=== PATIENT | male | born 1975 | race Caucasian/White ===

== ENCOUNTER 2017-02-23 10:13 | Emergency (ER) | payer OTHER ==
[2017-02-23] MEDS ORDERED: HYDROcodone/ACETAMIN 5-325 MG* 1 TAB PO ONE (12:48)
--- NOTE | 2017-02-23 12:55 | UC ---
Upper Extremity HPI - HPI Summary HPI Summary: lost his balance yesterday and pitched forward, falling into his smoker and thin falling against the stairs. Swelling and pain in the right elbow since then. No relief of pain with ibuprofen 1000mg - History of Current Complaint Chief Complaint: UCUpperExtremity Stated Complaint: S/P FALL RIGHT ELBOW INJURY Time Seen by Provider: 02/23/17 12:40 Hx Obtained From: Patient, Family/Pay Per Click Strategist - here with his . Onset/Duration: Sudden Onset, Lasting Days - 1 Severity Initially: Moderate Severity Currently: Moderate Pain Intensity: 8 Pain Scale Used: 0-10 Numeric Location Of Pain: Is Discrete @ - right elbow and right shoulder Character: Throbbing Aggravating Factor(s): Movement, Extension Alleviating Factor(s): OTC Meds, Other: - LI wrap Associated Signs And Symptoms: Positive: Negative Related History: Dominant Hand Right - Allergies/Home Medications Allergies/Adverse Reactions: Allergies Allergy/AdvReac Type Severity Reaction Status Date / Time Formaldehyde Allergy Swelling Verified 02/23/17 10:35 Home Medications: Home Medications Ibuprofen TAB* [Advil TAB*] 1,000 mg PO ONCE PRN 02/23/17 [History Confirmed ] Insulin Glargine (Nf) [Toujeo Solostar Pen (NF)] 90 unit SUBCUT BID 02/23/17 [ History Confirmed 02/23/17] PMH/Surg Hx/FS Hx/Imm Hx - Additional Past Medical History Additional PMH: morbid obesity Endocrine History: Diabetes Neurological History: Seizures - Surgical History Surgical History: Yes Surgery Procedure, Year, and Place: GALLBLADDER,ARTHROSCOPIC R KNEE SURGERY,T11- 12 LAMINECTOMY 12/01/11, - Family History Known Family History: Positive: Hypertension, Diabetes - Social History Occupation: Disabled - due to seizures Alcohol Use: Rare Substance Use Type: None Smoking Status (MU): Former Smoker Review of Systems Constitutional: Fatigue - could not sleep due to pain Skin: Negative Eyes: Negative ENT: Negative Respiratory: Negative Cardiovascular: Negative Gastrointestinal: Negative Genitourinary: Negative Motor: Negative Neurovascular: Negative Musculoskeletal: Arthralgia, Other: - swelling and decreased range of motion Neurological: Other - hx of seizures. Psychological: Negative All Other Systems Reviewed And Are Negative: Yes Physical Exam Triage Information Reviewed: Yes Appearance: Pain Distress - moderate, Obese Vital Signs: Initial Vital Signs Temp 98.3 F 02/23/17 10:37 Pulse 81 02/23/17 10:37 Resp 16 02/23/17 10:37 BP 132/76 02/23/17 10:37 Pulse Ox 98 02/23/17 10:37 Eye Exam: Normal Neck: Positive: Supple, Nontender Respiratory: Positive: Lungs clear Cardiovascular: Positive: RRR, No Murmur Musculoskeletal: Positive: ROM Limited @ - right elbow, unable to extend at the elbow., Other: - swelling and ecchymosis right elbow, decreased extension. Rotation with mild pain. Wrist with full rom. right shoulder with abuction to 90 degrees. Clavicle intack. Neurological: Positive: Alert, Muscle Tone Normal Psychological Exam: Normal Skin Exam: Normal Diagnostics - Laboratory Diagnostic Studies Completed/Ordered: xray shows effusion, no evidence of fracture. ? radial head fracture Re-Evaluation - Re-Evaluation First Eval Re-Evaluation Time: 13:30 Change: Improved Upper Extremity Course/Dx - Course Course Of Treatment: sling due to possible radial head fracture. follow up with orthopedics. hydrocodone for control of pain - Differential Dx/Diagnosis Differential Diagnosis/HQI/PQRI: Fracture (Closed), Strain, Sprain Provider Diagnoses: right elbow effusion, possible right radial head fracture. contusion right elbow Discharge - Discharge Plan Condition: Stable Disposition: HOME Prescriptions: HYDROcodone/ACETAMIN 5-325 MG* [Jal 5-325 TAB*] 2 tab PO Q6H PRN #30 tab MDD 8 PRN Reason: Pain Patient Education Materials: Elbow Fracture (ED) Referrals: Sudhir Nunez PA [Primary Care Provider] - Sekou Parker MD [Medical Doctor] - Additional Instructions: Although no definite fracture is seen, it is possible that the radial head has a break in it. Please follow up with orthopedics in 5 to 7 days for re-evaluation. Wear the sling throughout the day, and ensure that you ice the elbow for 10 minutes at least 4 times per day.
[2017-02-23 12:59] VITALS: BP 128/83
--- NOTE | 2017-02-23 13:36 | RAD ---
INDICATION: Right elbow injury. TECHNIQUE: 4 views of the right elbow were obtained. FINDINGS: There is soft tissue swelling along the lateral posterior aspect of the elbow. The bones are in normal alignment. There is a joint effusion present seen with both anterior posterior fat pad signs. No discrete fracture is seen. Joint spaces appear maintained. The results of this exam were discussed with the referring clinician. IMPRESSION: JOINT EFFUSION, NO FRACTURE IS SEEN. THE POSSIBILITY OF A NONDISPLACED FRACTURE CANNOT BE EXCLUDED. RECOMMEND A FOLLOW-UP X-RAY OF THE ELBOW IN 7-10 DAYS FOR FURTHER EVALUATION.
--- NOTE | 2017-02-23 16:15 | UC ---
Progress - Progress Note Progress Note: Ravindra cuevasent-see nurses note Re-Evaluation - Re-Evaluation First Eval Re-Evaluation Time: 13:30 Change: Improved
== END 2017-02-23 13:59 | disposition home or self-care (01) ==
LOC: UCCORT 10:13
DX: M25.421 Effusion, right elbow (principal); S50.01XA Contusion of right elbow, initial encounter; W18.09XA Striking against other object with subsequent fall, initial encounter; Y93.9 Activity, unspecified; Y92.9 Unspecified place or not applicable; E11.9 Type 2 diabetes mellitus without complications; Z79.4 Long term (current) use of insulin; E66.01 Morbid (severe) obesity due to excess calories; R56.9 Unspecified convulsions; Z90.49 Acquired absence of other specified parts of digestive tract; Z87.891 Personal history of nicotine dependence
CPT/HCPCS: 99213; G0463

== ENCOUNTER 2017-04-14 13:00 | Inpatient (IN) | payer OTHER ==
[2017-04-14] MEDS ORDERED: Ibuprofen TAB* 600 MG PO PRN (18:53)
[2017-04-14] MEDS ORDERED: diPHENhydraMINE PO* 25 MG PO PRN (18:53)
[2017-04-14] MEDS ORDERED: LORazepam INJ* 2 MG/ML 1 ML VIAL IV PRN (18:53)
[2017-04-14] MEDS ORDERED: Loperamide CAP* 2 MG PO PRN (18:57)
--- NOTE | 2017-04-14 19:03 | ADMNOTE ---
Admission Note HPI - HPI Handedness: DOS 04/14/17 right handed History of Present Illness: Dillan Marlow is a 41 year old right-handed man with a history of diabetes who reports the onset of spells in November 2015. He was alone when interviewed and much of what he reports about these spells is based on what his has told him. He indicates that he does not typically have much of a warning before these events and only knows one has happened when he comes to and realizes he has missed time and has a headache. Events involve left arm tremoring/shaking, eyes "rolled up" and poor responsiveness. His has told him he can sometimes speak, but it won't make sense. 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 He believes episodes are happening about once a week but his says once a day. He also reports headaches every day. When this first started occurring, he saw a neurologist in [place] (Dr Gold) and he reports that he had an episode in this physician's office and he was immediately admitted to [facility] for a work up. He recalls having an EEG as well as imaging tests and he says he recalls being told "something was functioning right on one side". When asked if he was diagnosed with seizures at that point, he replies in the affirmative. He was started on Depakote and apparently also on olanzapine at that time (per Dr Franco's note), but the patient denies any history of psychiatric illness. Dr Gold then retired and referred Dillan to [facility] neurology. When asked what he was told about these spells from this office, he indicates that "they said everything was due to my weight". At this point, he and his decided to pursue another opinion. He had a normal EEG in May 2016, which showed some normal variants including RMTD and wickets. He believes Depakote has made his memory loss after events less severe (only 10 or 15 minutes rather than days). He also reported he may have been on other medication for these spells, but he did not know what, and Dr. Franco's consult indicates Depakote was the only medication tried. He is frustrated that these episodes have caused him to stop working. What is most frustrating to him, however, are speech difficulties. He has always had a hard time expressing himself, but since these began it has become much harder. He has developed an intermittent stutter. He feels that his thoughts are fragmented and racing so quickly that he cannot organize them enough to express himself fluently. As a result, he often has to pause to think of words. He denies any illness or injury prior to these spells starting. 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 Epilepsy Risk Factors: He has had multiple head injuries with concussions but no losses of consciousness. He reports learning disability. Born on time and met all milestones on time as far as he knows. No complications of his mother's or delivery. No h/o febrile seizures. No COMPUTER TERMINAL OPERATOR infections. Maternal aunt has some type of spells but not clear that these are epileptic. PNEA Risk Factors: Denies a h/o physical, emotional or sexual abuse. 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 Respiratory History: Reports: Hx Sleep Apnea GI History: Reports: Hx Irritable Bowel History: Reports: Hx Dialysis - x 1 episode 2 years ago Denies: Hx Renal Disease Musculoskeletal History: Reports: Hx Back Problems - Hx of laminectoy for fx 4 years ago, Hx Orthopedic Injury - Crush injury to left arm/hand aprox 10 yrs ago Sensory History: Reports: Hx Vision Problem - retinal problem, pt unsure of name Denies: Hx Contacts or Glasses, Hx Hearing Aid Opthamlomology History: Denies: Hx Contacts or Glasses Neurological History: Reports: Hx Headaches, Hx Migraine, Hx Seizures Denies: Hx Developmental Delay Psychiatric History: Reports: Other Psychiatric Issues/Disorders - Mood disorder Denies: Hx Panic Disorder - Surgical History Surgery Procedure, Year, and Place: GALLBLADDER,ARTHROSCOPIC R KNEE SURGERY,T11- 12 LAMINECTOMY 12/01/11, Hx Anesthesia Reactions: No Infectious Disease History: No Infectious Disease History: Denies: Traveled Outside the [place] in Last 30 Days - Family History Known Family History: Positive: Hypertension, Diabetes - Social History Lives: With Family Alcohol Use: None Substance Use Type: Reports: None Smoking Status (MU): Former Smoker EMU Exam - Exam Physical/Neurological Exam: Physical Exam: General: Well appearing in no acute distress. He is obese Eyes: normal conjunctiva, pupils were equal and reactive. Neck: supple, no bruit ENT: atraumatic, normal oropharynx Pulmonary: clear to auscultation, good respiratory effort Cardiac: regular rate and rhythmic, no murmurs/rubs/gallops, pulses palpable MSK: no extremity deformities Derm: no rashes or lesions Neurological Exam: Mental Status: Awake and alert. Oriented to person, place, and time. Fluent. Comprehension intact. Affect appropriate. Cranial Nerves: Visual [place] full to confrontation. Fundoscopic examination benign. Pupils were equal, round, and reactive constricting from 3mm to 2mm. Versions were full and without nystagmus. Facial musculature and sensation were symmetric. Hearing grossly intact to finger rub. Palate was upgoing bilaterally. Tongue was midline. Shoulder shrug was symmetric. Motor: Bulk, tone, and strength were normal throughout. Pronator drift was absent. There were no abnormal movements. Sensory: Sensation to light touch intact. Romberg was deferred. Coordination: Finger to nose and heel to [place] were intact. Reflexes: 2+ throughout the upper and lower extremities with downgoing toes bilaterally. Gait: Narrow based and normal. EMU Review of Systems Review of Systems: A 12 point review of systems was completed and significantly positive for: as per HPI The remainder of the review was negative except as stated above in the HPI. EMU Diagnostics - Diagnostic Most Recent Vital Signs: Vital Signs: Temp Pulse Resp BP Pulse Ox 97.4 F 85 20 126/68 96 04/14/17 14:18 04/14/17 14:18 04/14/17 16:00 04/14/17 14:18 04/14/17 14:18 Interim video-EEG long-term monitoring report: Routine EEG from [place] May 2016 was normal EMU Assessment/Plan - Assessment/Plan Assessment/Plan: Patient presents with daily episodes of altered responsiveness, left arm tremoring followed by headache and lapse of memory for the event (and sometimes longer). He is treated with Depakote 1500mg daily for these events (500mg QAM And 1000mg QPM) but continues to experience them. The differential includes epileptic seizures and non-epileptic events. The goal of the present intermediate card tender video/EEG monitoring session is to characterize these events and to evaluate the EEG for epileptiform activity. Plan: Admit to the Epilepsy Service, Dr. Muse attending long-term video EEG monitoring for the purpose of characterizing events above Seizure precautions IV lorazepam as needed for prolonged seizures > 3 minutes Home AED regimen: Depakote 500mg QAM And 1500mg QPM. He will receive 750mg tonight and 250mg tomorrow morning. Continue on other prescribed home medications. * Check BG wtih events
[2017-04-14] MEDS: INVOKAMET PO SCH (20:16)
[2017-04-14] MEDS: Insulin GLARGINE(*) 1 UNITS UNIT SUBCUT SCH (20:17)
[2017-04-14] MEDS: QUEtiapine TAB* 25 MG PO SCH (20:17)
[2017-04-14] MEDS: Gabapentin CAP(*) 300 MG PO SCH (20:17)
[2017-04-14] MEDS ORDERED: Divalproex ER TAB(*) 500 MG PO SCH (21:00)
[2017-04-15] MEDS: Insulin LISPRO* 1 UNITS UNIT SUBCUT SCH ×2 (08:07→17:50)
[2017-04-15] MEDS ORDERED: Divalproex DR TAB(*) 250 MG PO SCH (09:00)
[2017-04-15] MEDS: Aspirin EC Low Dose* 81 MG TAB.EC PO SCH (09:08)
[2017-04-15] MEDS: INVOKAMET PO SCH ×2 (09:09→22:18)
[2017-04-15] MEDS: Gabapentin CAP(*) 300 MG PO SCH ×2 (09:11→22:19)
[2017-04-15] MEDS: Metoprolol Succinate XL TAB* 25 MG PO SCH (09:12)
[2017-04-15] MEDS: QUEtiapine TAB* 25 MG PO SCH ×2 (09:12→22:19)
[2017-04-15] MEDS: Insulin GLARGINE(*) 1 UNITS UNIT SUBCUT SCH ×2 (09:13→22:06)
--- NOTE | 2017-04-15 10:10 | EEG ---
INTERMEDIATE VIDEO/EEG MONITORING - Monitoring Monitoring Start Date: 04/14/17 Current Monitoring Session: 04/14/17 to [] EEG Clinical Indication: Dillan Marlow is a 41 year old man with a history of diabetes, hypertension , morbid obesity and obstructive sleep apnea who presents for characterization of events of left hand twitching/tremoring associated with diminished responsiveness, headache and lack of memory for the event. These events began about 1.5 years ago. He has been treated with Depakote DR 500mg QAM and 1000mg QPM, which he thinks has shortened the amount of memory loss he experiences, but he is still experiencing these events on a daily per his . After an event, he will have increase in his headache, which is right-sided. He has chronic daily headaches as well. Long-term monitoring is undertaken in order to characterize events and evaluate the EEG for epileptiform activity. Introduction: INTRODUCTION: The EEG was monitored from 21 scalp electrodes. Nineteen electrodes consisted of the standard parasagittal, temporal and midline leads of the International 10 -20 system. In addition, special electrodes FT9 and FT10 were placed. EEG data were recorded on an Memorop system with simultaneous MPEG-4 digital video recording of patient behavior. EEG recording was in a monopolar montage with all electrodes referenced to FCz. Significant behavioral events were signaled by an event button, or putative electrical seizure events were detected by a computer program. All EEG data were reviewed in their entirety on a monitor with reconstruction of montages and adjustments of sensitivity and filtering. Simultaneous patient behavior was viewed on an adjacent monitor and correlated with the EEG. - Medications Active Medications: Aspirin (Aspirin Ec Low Dose*) 81 mg PO DAILY [facility] Last Admin: 04/15/17 09:08 Dose: 81 mg Diphenhydramine HCl (Benadryl Po*) 25 mg PO Q6H PRN PRN Reason: ITCHING Divalproex Sodium (Depakote Dr Tab(*)) 250 mg PO QAM [facility] Last Admin: 04/15/17 09:10 Dose: 250 mg Divalproex Sodium (Depakote Er Tab(*)) 500 mg PO BEDTIME [facility] Last Admin: 04/14/17 20:17 Dose: 500 mg Gabapentin (Neurontin Cap(*)) 600 mg PO BID [facility] Last Admin: 04/15/17 09:11 Dose: 600 mg Ibuprofen (Motrin Tab*) 600 mg PO Q8H PRN PRN Reason: PAIN Insulin Glargine (Lantus(*)) 90 units SUBCUT BID [facility] Last Admin: 04/15/17 09:13 Dose: 90 units Insulin Human Lispro (Humalog*) 80 units SUBCUT BID AC [facility] Last Admin: 04/15/17 08:07 Dose: 80 unit Loperamide HCl (Imodium Cap*) 2 mg PO Q4H PRN PRN Reason: DIARRHEA Lorazepam (Ativan Inj*) 1 mg IV Q8H PRN PRN Reason: Seizure > 3 minutes Metoprolol Succinate (Toprol Xl Tab*) 25 mg PO QAM [facility] Last Admin: 04/15/17 09:12 Dose: 25 mg Pto: Invokamet 150- (1000mg Tablet) 1 tab PO BID [facility] Last Admin: 04/15/17 09:09 Dose: 1 tab Quetiapine Fumarate (Seroquel Tab*) 50 mg PO BID [facility] Last Admin: 04/15/17 09:12 Dose: 50 mg - Description Background: The waking background showed appropriate organization with clearly defined anterior-posterior voltage and frequency gradients. There was a defined posterior dominant rhythm of 10 Hertz, which was symmetrical and showed normal reactivity. Anteriorly, there was the expected pattern of lower voltage and more irregular theta and beta rhythms. During drowsiness, he had prominent normal variant waveforms in the bilateral temporal regions. In the right and left temporal regions, he would have frequent runs of arciform, sharply contoured waves which exhibited a broad field and were consistent with wickets. In the left temporal region, he also had epochs of a notched, sharply contoured rhythm in the theta range which was consistent with rhythmic mid-temporal theta of drowsiness (RMTD). The sleep background was appropriately organized with well-developed spindles and vertex waves indicative of stage 2 sleep. These sleep transients showed appropriate morphology and were bilaterally synchronous and symmetrical. Development of diffuse delta range frequencies with dropout of stage 2 architecture accompanied transition to slow wave sleep, and a lower voltage mixed frequency pattern associated with eye movements was consistent with REM sleep. Intericatal Epileptiform Activity: #01 04/14: Medications: Depakote 500mg PM on 04/14 and 250mg AM on 04/15 None #02 04/15: Medications: Depakote 250mg PM on 04/15 then stopped None #03 04/16: None Ictal Activity: #01 04/14: At 14:33, the nurse pressed the event button when it was noted that the patient's left hand was moving. He was resting in bed with sunglasses on. His left hand was noted to have irregular, arrhythmic low amplitude movements primarily in the fingers. His right arm was resting behind his head. He was slow to respond to the nurse but was able to state his name and follow commands to raise his right arm and show 3 fingers on the right hand. He was given a recall phrase which he later did not remember. The episode of hand tremor lasted about a minute. He fell asleep shortly after. The EEG demonstrated that about one minute before this began, he had been drowsy. There was no EEG correlate to this event. No ictal patterns #02 04/15: At 11:44 on 04/15, the patient pressed the event button. Just prior to this he had been asleep, then received a phone call from his daughter. Immediately upon hanging up, he pressed the event button. He told nursing he was "on the verge" of having an event and was feeling light sensitive and nauseated. He was initially briskly responsive the questions and commands. He was given a recall phrase and shortly thereafter remembered one of the two words. A little more than 1.5 minutes after he pressed the event button, his left hand began to tremor and this appeared similar to the event he experienced the day before. After this, he had delayed responsiveness to questions and commands. His blood glucose was checked with this event and was 44. Afterward, he ate lunch and drank juice and his BG normalized. There was no EEG correlate to this event. No ictal patterns #03 04/16: No ictal patterns. No patient events - Impression Impression: This is a normal long-term monitoring session. There were no epileptiform discharges or ictal patterns noted. There is no objective evidence to support a diagnosis of epilepsy. The patient experienced two events during the monitoring session of headache, light sensitivity, delayed/diminished responsiveness and left arm tremoring. There was no change in the usual waking EEG background during these events. These events are non-epileptic in nature. One event was associated with a low blood glucose to 44mg/dL but there was no slowing on the EEG associated with this.
--- NOTE | 2017-04-15 10:18 | PN ---
Epilepsy Service Progress Note - Subjective DOS 04/15/17 Pt reports no further episodes since one he experienced around 2:30 pm yesterday. He is developing a headache though so he thinks one will be coming on soon. He also expressed the desire to get off gabapentin while here, which he has been using for neuropathic pain in his left hand which is due to a crush injury some years ago. He is afraid it is "causing mental problems". - Medications Active Medications: Aspirin (Aspirin Ec Low Dose*) 81 mg PO DAILY [facility] Last Admin: 04/15/17 09:08 Dose: 81 mg Diphenhydramine HCl (Benadryl Po*) 25 mg PO Q6H PRN PRN Reason: ITCHING Divalproex Sodium (Depakote Er Tab(*)) 250 mg PO BEDTIME [facility] Stop: 04/15/17 21:01 Gabapentin (Neurontin Cap(*)) 600 mg PO BID [facility] Last Admin: 04/15/17 09:11 Dose: 600 mg Ibuprofen (Motrin Tab*) 600 mg PO Q8H PRN PRN Reason: PAIN Insulin Glargine (Lantus(*)) 90 units SUBCUT BID [facility] Last Admin: 04/15/17 09:13 Dose: 90 units Insulin Human Lispro (Humalog*) 80 units SUBCUT BID AC [facility] Last Admin: 04/15/17 08:07 Dose: 80 unit Loperamide HCl (Imodium Cap*) 2 mg PO Q4H PRN PRN Reason: DIARRHEA Lorazepam (Ativan Inj*) 1 mg IV Q8H PRN PRN Reason: Seizure > 3 minutes Metoprolol Succinate (Toprol Xl Tab*) 25 mg PO QAM [facility] Last Admin: 04/15/17 09:12 Dose: 25 mg Pto: Invokamet 150- (1000mg Tablet) 1 tab PO BID [facility] Last Admin: 04/15/17 09:09 Dose: 1 tab Quetiapine Fumarate (Seroquel Tab*) 50 mg PO BID [facility] Last Admin: 04/15/17 09:12 Dose: 50 mg EMU Diagnostics - Diagnostic Most Recent Vital Signs: Vital Signs: Temp Pulse Resp BP Pulse Ox 98.9 F 82 20 139/77 96 04/15/17 08:11 04/15/17 08:11 04/15/17 08:39 04/15/17 08:11 04/14/17 20:00 Interim video-EEG long-term monitoring report: #01 04/14: PDR 10, during drowsiness normal variants of wickets seen in bilateral temporal regions and RMTD in L temporal region. Normal sleep. No discharges, no seizures. Patient had a typical event at 14:30 with left hand tremoring, delayed responsiveness but able to state his name and follow commands with his right hand associated with headache afterward. He was unable to remember a recall phrase. There was no EEG correlate to this event. EMU Exam - Exam Physical/Neurological Exam: Physical Exam: General: Well appearing in no acute distress. He is obese Derm: no rashes or lesions Neurological Exam: Mental Status: Awake and alert. Oriented to person, place, and time. Fluent. Comprehension intact. Affect appropriate. Cranial Nerves: Versions were full and without nystagmus. Facial musculature and sensation were symmetric. Hearing grossly intact to voice. Palate was upgoing bilaterally. Tongue was midline. Shoulder shrug was symmetric. Motor: Bulk, tone, and strength were normal throughout. There were no abnormal movements. Sensory: Sensation to light touch intact. Coordination: not retested Reflexes: not retested. Gait: resting in bed. EMU Progress Note Assessment/P - Assessment/Plan Assessment: 41 year old man with episodes of left arm tremors, delayed/diminished responsiveness, lack of memory for event and headache following an event presenting for characterization of said events. He also has a history of DM on insulin as well as neuropathic pain in the left hand for which he has been taking gabapentin. He asks to be weaned off gabapentin as well. One typical event recorded thus far without EEG correlate. EEG shows normal drowsy variants, otherwise no discharges. Will continue to wean Depakote, capture further events and will also reduce gabapentin. 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
[2017-04-15] MEDS ORDERED: Divalproex ER TAB(*) 500 MG PO SCH (11:00)
[2017-04-15] MEDS ORDERED: Dextrose 50% Syringe 50 ML* 25 GM/50 ML SYRINGE IV PUSH PRN (20:07)
[2017-04-15] MEDS ORDERED: Divalproex ER TAB(*) 250 MG PO ONE (21:00)
[2017-04-16 08:03] VITALS: BP 141/75
[2017-04-16] MEDS: Insulin LISPRO* 1 UNITS UNIT SUBCUT SCH (08:05)
[2017-04-16] MEDS: INVOKAMET PO SCH (09:17)
[2017-04-16] MEDS: Metoprolol Succinate XL TAB* 25 MG PO SCH (09:18)
[2017-04-16] MEDS: QUEtiapine TAB* 25 MG PO SCH (09:18)
[2017-04-16] MEDS: Aspirin EC Low Dose* 81 MG TAB.EC PO SCH (09:18)
[2017-04-16] MEDS: Gabapentin CAP(*) 300 MG PO SCH (09:18)
[2017-04-16] MEDS: Insulin GLARGINE(*) 1 UNITS UNIT SUBCUT SCH (09:19)
--- NOTE | 2017-04-16 10:24 | PN ---
Epilepsy Service Progress Note - Subjective DOS 04/16/17 Patient had an event yesterday morning where he pressed the event button feeling light sensitive and nauseated then progressed to having left arm tremoring. This morning he indicates he remembers "bits and pieces". He states this didn't feel exactly like his typical events because it felt like "sugar, being shaky and sweaty". When told he had left arm tremoring, he seemed surprised and said "oh, ok then". His blood glucose was 44 at the time of this event. He indicates that his has checked his BGs at home with other events and it has been normal or high. We discussed the differential for these events including his body's response to hypoglycemia versus his body's response to stress whether it be physical pain (headache) or other stress - psychogenic non- epileptic attack. He requests to go home today. - Medications Active Medications: Aspirin (Aspirin Ec Low Dose*) 81 mg PO DAILY [facility] Last Admin: 04/16/17 09:18 Dose: 81 mg Dextrose (D50w Syringe 50 Ml*) 25 gm IV PUSH ONCE PRN PRN Reason: Fs < 40 Diphenhydramine HCl (Benadryl Po*) 25 mg PO Q6H PRN PRN Reason: ITCHING Gabapentin (Neurontin Cap(*)) 300 mg PO BID [facility] Last Admin: 04/16/17 09:18 Dose: 300 mg Ibuprofen (Motrin Tab*) 600 mg PO Q8H PRN PRN Reason: PAIN Last Admin: 04/15/17 11:55 Dose: 600 mg Insulin Glargine (Lantus(*)) 90 units SUBCUT BID [facility] Last Admin: 04/16/17 09:19 Dose: 90 units Insulin Human Lispro (Humalog*) 80 units SUBCUT BID AC [facility] Last Admin: 04/16/17 08:05 Dose: 80 unit Loperamide HCl (Imodium Cap*) 2 mg PO Q4H PRN PRN Reason: DIARRHEA Lorazepam (Ativan Inj*) 1 mg IV Q8H PRN PRN Reason: Seizure > 3 minutes Metoprolol Succinate (Toprol Xl Tab*) 25 mg PO QAM [facility] Last Admin: 04/16/17 09:18 Dose: 25 mg Pto: Invokamet 150- (1000mg Tablet) 1 tab PO BID [facility] Last Admin: 04/16/17 09:17 Dose: 1 tab Quetiapine Fumarate (Seroquel Tab*) 50 mg PO BID [facility] Last Admin: 04/16/17 09:18 Dose: 50 mg EMU Diagnostics - Diagnostic Most Recent Vital Signs: Vital Signs: Temp Pulse Resp BP Pulse Ox 98.2 F 76 20 141/75 95 04/16/17 08:00 04/16/17 08:00 04/16/17 08:00 04/16/17 08:00 04/16/17 08:00 Lab Results: Laboratory Tests 04/15/17 04/15/17 04/15/17 11:57 17:46 19:27 POC Glucose (mg/dL) 44 L 92 120 H 04/15/17 04/16/17 21:58 07:57 POC Glucose (mg/dL) 84 148 H Interim video-EEG long-term monitoring report: #01 04/14: PDR 10, during drowsiness normal variants of wickets seen in bilateral temporal regions and RMTD in L temporal region. Normal sleep. No discharges, no seizures. Patient had a typical event at 14:30 with left hand tremoring, delayed responsiveness but able to state his name and follow commands with his right hand associated with headache afterward. He was unable to remember a recall phrase. There was no EEG correlate to this event. #02 8/: background is the same. Event at 11:44 consisted of light sensitivity , nausea, headache, poor responsiveness and eventually left hand tremoring. No associated EEG change. #03 04/16: background is the same. No further events of yet. EMU Exam - Exam Physical/Neurological Exam: Physical Exam: General: Well appearing in no acute distress. He is obese Derm: no rashes or lesions Neurological Exam: Mental Status: Awake and alert. Oriented to person, place, and time. Fluent. Comprehension intact. Affect appropriate. Cranial Nerves: Versions were full and without nystagmus. Facial musculature and sensation were symmetric. Hearing grossly intact to voice. Palate was upgoing bilaterally. Tongue was midline. Shoulder shrug was symmetric. Motor: Bulk, tone, and strength were normal throughout. There were no abnormal movements. Sensory: Sensation to light touch intact. Coordination: FTN without ataxia Reflexes: not retested. Gait: resting in bed. EMU Progress Note Assessment/P - Assessment/Plan Assessment: 41 year old man with episodes of left arm tremors, delayed/diminished responsiveness, lack of memory for event and headache following an event presenting for characterization of said events. He also has a history of DM on insulin as well as neuropathic pain in the left hand for which he has been taking gabapentin. He asks to be weaned off gabapentin as well. One typical event recorded thus far without EEG correlate. He had another event on 04/15 which appeared to be typical in that he had left arm tremoring and diminished responsiveness, but he indicates the beginning of the event felt different because it was similar to his experience when he has hypoglycemia. Indeed, his BG was low with this event at 44. It responded to him drinking soda , juice and eating lunch. There was no EEG correlate to this event either. EEG shows normal drowsy variants, otherwise no discharges. Depakote has been discontinued. Discussed differential with patient. Events could be his body's response to hypoglycemia, but this seems less likely if his has checked his BG at home during events and it has been normal or high. 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 In men, the factors playing into these events are sometimes more difficult to define. Question whether his daily headaches are contributing to these as a response to the stress of pain. Advised patient I am not certain of the exact underlying reason for these, but they are not epileptic and he does not need Depakote to treat them. Offered continued monitoring to capture another event and be able to measure BG again, but he declined, wants to go home. Will provide brochure on PNEA Also discussed gabapentin with patient - he wants to continue to wean off this so will give him a schedule to do so. Plan: * d/c shelter video EEG monitoring * d/c Depakote * continue gabapentin 300mg BID for 3 days, then reduce to 300mg at night x3 days then stop * recommend patient check BG with events at home. Will send discharge summary to resin filterer (Dr. Castillo) * pt should follow up with Dr Franco regarding chronic headaches
--- NOTE | 2017-04-16 10:58 | PN ---
Objective Active Medications: Aspirin (Aspirin Ec Low Dose*) 81 mg PO DAILY [facility] Last Admin: 04/16/17 09:18 Dose: 81 mg Dextrose (D50w Syringe 50 Ml*) 25 gm IV PUSH ONCE PRN PRN Reason: Fs < 40 Diphenhydramine HCl (Benadryl Po*) 25 mg PO Q6H PRN PRN Reason: ITCHING Gabapentin (Neurontin Cap(*)) 300 mg PO BID [facility] Last Admin: 04/16/17 09:18 Dose: 300 mg Ibuprofen (Motrin Tab*) 600 mg PO Q8H PRN PRN Reason: PAIN Last Admin: 04/15/17 11:55 Dose: 600 mg Insulin Glargine (Lantus(*)) 90 units SUBCUT BID [facility] Last Admin: 04/16/17 09:19 Dose: 90 units Insulin Human Lispro (Humalog*) 80 units SUBCUT BID AC [facility] Last Admin: 04/16/17 08:05 Dose: 80 unit Loperamide HCl (Imodium Cap*) 2 mg PO Q4H PRN PRN Reason: DIARRHEA Lorazepam (Ativan Inj*) 1 mg IV Q8H PRN PRN Reason: Seizure > 3 minutes Metoprolol Succinate (Toprol Xl Tab*) 25 mg PO QAM [facility] Last Admin: 04/16/17 09:18 Dose: 25 mg Pto: Invokamet 150- (1000mg Tablet) 1 tab PO BID [facility] Last Admin: 04/16/17 09:17 Dose: 1 tab Quetiapine Fumarate (Seroquel Tab*) 50 mg PO BID [facility] Last Admin: 04/16/17 09:18 Dose: 50 mg Vital Signs 04/15/17 04/15/17 04/16/17 19:56 20:00 08:00 Temperature 98.0 F 98.2 F Pulse Rate 80 76 Respiratory 19 19 20 Rate Blood Pressure 138/68 141/75 (mmHg) O2 Sat by Pulse 100 95 Oximetry Assess/Plan/Problems-Billing Assessment: 41 year old man with episodes of left arm tremors, delayed/diminished responsiveness, lack of memory for event and headache following an event presenting for characterization of said events. He also has a history of DM on insulin as well as neuropathic pain in the left hand for which he has been taking gabapentin. He asks to be weaned off gabapentin as well. One typical event recorded thus far without EEG correlate. He had another event on 04/15 which appeared to be typical in that he had left arm tremoring and diminished responsiveness, but he indicates the beginning of the event felt different because it was similar to his experience when he has hypoglycemia. Indeed, his BG was low with this event at 44. It responded to him drinking soda , juice and eating lunch. There was no EEG correlate to this event either. EEG shows normal drowsy variants, otherwise no discharges. Depakote has been discontinued. Discussed differential with patient. Events could be his body's response to hypoglycemia, but this seems less likely if his has checked his BG at home during events and it has been normal or high. 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 In men, the factors playing into these events are sometimes more difficult to define. Question whether his daily headaches are contributing to these as a response to the stress of pain. Advised patient I am not certain of the exact underlying reason for these, but they are not epileptic and he does not need Depakote to treat them. Offered continued monitoring to capture another event and be able to measure BG again, but he declined, wants to go home. Will provide brochure on PNEA Also discussed gabapentin with patient - he wants to continue to wean off this so will give him a schedule to do so. Plan: * d/c [facility] video EEG monitoring * d/c Depakote * continue gabapentin 300mg BID for 3 days, then reduce to 300mg at night x3 days then stop * recommend patient check BG with events at home. Will send discharge summary to break out worker (Dr. Castillo) * pt should follow up with Dr Franco regarding chronic headaches
--- NOTE | 2017-04-16 11:12 | DS ---
EMU Discharge - Discharge Summary Discharge Summary: Admitted: 04/14/17 Attending: Ninoska Muse MD Admitting Diagnosis: possible seizures Discharge Diagnosis: non-epileptic attacks Admission History (From Admission H&P): see H&P Admission Examination: see H&P Admission AED Medications: Depakote DR 500mg QAM and 1000mg QPM Hospital Course: The patient was admitted to the epilepsy service for long-term video EEG monitoring. He was placed on a consistent carbohydrate diet. The patient had 2 events consisting of light sensitivity, headache, diminished/delayed responsiveness, left hand tremoring and impaired recall of the event. These were considered typical of events that the patient was having at home. Review of the EEG did not demonstrate an associated epileptiform abnormality. In fact , throughout the duration of the admission there were no epileptiform abnormalities observed. The EEG demonstrated a normal waking and sleep background with some normal drowsy variants including rhythmic mid-temporal theta of drowsiness and wicket rhythms. With one event, the patient's blood glucose was noted to be 44. This responded to the patient drinking soda and juice and eating lunch. The possibility was raised that these events could be his body's response to hypoglycemia, however unusual. However, the patient indicated that his had checked his blood glucose several times with these events and it was typically normal or high. Therefore, it is possible that the low glucose was simply a coincidence. The patient has chronic headaches which are associated with these events. It is possible the stress of this pain is manifesting as these events. In discussing with the patient, there were no obvious risk factors for psychogenic non- epileptic attacks identified, but these events are indeed non-epileptic in nature. Therefore, the following was discussed with the patient. These results could consistent with a diagnosis of psychogenic nonepileptic attacks (PNEA), versus the other possibilities described above. This diagnosis was presented to the patient by Dr Muse. We discussed, in detail, the unconscious nature of these attacks, the mind-body connection including the power of the unconscious mind, the frequency of PNEA (one-third of our cases), that people with PNEA are not crazy, and that these attacks are real; that is, people with PNEA are not faking the attacks and do not have overt conscious control over the attacks as they arise in the subconscious mind. Sometimes with this information, the attacks stop. We provided instructions that if the attacks persist, counseling may help. We discussed first aid for these attacks: those around should allow the attacks to run their course and then the patient should return to you prior activity or rest as needed. Since these attacks pose no risk for damage to the brain, there is no reason to go to the Emergency Department unless there is a significant injury (presumably inadvertent). Once these attacks have resolved for over a month, activity restrictions can be lifted, although on days that she does not feel well, activities should be restricted. We recommend counseling. We provided the patient with our brochure discussing PNEA. The following medication medication changes were made during the testing: Depakote was tapered and discontinued. In addition, the patient requested to be taken off gabapentin, so this was reduced to 300mg twice daily during the hospitalization. On discharge, he was instructed to take 300mg BID x3 days then 300mg QHS x3 days then stop As antiepileptic seizure drugs are not effective at controlling Psychogenic Non- Epileptic Attacks (PNEA), we recommend Depakote be discontinued at the time of discharge. Discharge Examination: same as admission - morbidly obese but non-focal, normal neurological examination Destination: Home. Diet: Diabetic diet. Follow-up: to be scheduled with Dr. Franco for continued management of headaches. Patient also recommended to FU with PCP and senior marketing coordinator as scheduled. Home Medications Medication Instructions Recorded Confirmed Type Aspirin [Aspirin 81 MG TAB] 81 mg PO DAILY 07/06/16 04/14/17 History Insulin Lispro [Humalog] 80 unit SC BID 07/06/16 04/14/17 History Metoprolol Succinate XL TAB* 25 mg PO QAM 07/06/16 04/14/17 History [Toprol XL TAB*] QUEtiapine TAB* [Seroquel TAB*] 50 mg PO BID 07/06/16 04/14/17 History Insulin Glargine (Nf) [Toujeo 90 unit SUBCUT BID 02/23/17 04/14/17 History Solostar Pen (NF)] Canagliflozin-Metformin HCl 1 tab PO BID 04/14/17 04/14/17 History [Invokamet 150-1000 mg] Excedrin Migraine 250-250-65 mg 1 tab PO Q6H PRN 04/14/17 04/14/17 History Loperamide CAP* [Imodium CAP*] 2 mg PO Q4H PRN 04/14/17 04/14/17 History Gabapentin CAP(*) [Neurontin 300 300 mg PO BID cap 04/16/17 Rx CAP(*)]
== END 2017-04-16 12:55 | disposition home or self-care (01) | DRG 53 ==
LOC: EMU 13:06
PROVIDERS: ADMIT Psychiatry & Neurology Neurology; ATTEND Psychiatry & Neurology Neurology
DX: G40.89 Other seizures (principal); I10 Essential (primary) hypertension; E11.9 Type 2 diabetes mellitus without complications; G47.33 Obstructive sleep apnea (adult) (pediatric); K58.9 Irritable bowel syndrome, unspecified; F39 Unspecified mood [affective] disorder; Z83.3 Family history of diabetes mellitus; Z82.49 Family history of ischemic heart disease and other diseases of the circulatory system; Z87.891 Personal history of nicotine dependence; E66.9 Obesity, unspecified; Z68.39 Body mass index [BMI] 39.0-39.9, adult; Z79.4 Long term (current) use of insulin; Z79.899 Other long term (current) drug therapy
CPT/HCPCS: 95951; A9270-GY

== ENCOUNTER 2018-06-26 16:21 | Emergency (ER) | payer OTHER ==
--- NOTE | 2018-06-27 13:14 | UC ---
- Progress Note Progress Note: No x-rays ordered on June 26, 2018 Discharge - Sign-Out/Discharge Documenting (check all that apply): Patient Departure All imaging exams completed and their final reports reviewed: No Studies - Discharge Plan Condition: Stable Disposition: LEFT WITHOUT BEING SEEN Referrals: Sudhir Nunez PA [Primary Care Provider] - - Billing Disposition and Condition Condition: STABLE Disposition: Left Without Being Seen
== END 2018-06-26 16:57 | disposition left against medical advice (07) ==
LOC: UCCORT 16:21
DX: Z53.21 Procedure and treatment not carried out due to patient leaving prior to being seen by health care provider (principal)

== ENCOUNTER 2023-01-28 15:18 | Inpatient (IN) ==
[2023-01-28] MEDS ORDERED: Vancomycin 2,000 MG in NS 0.9% 250 ml 250 ML IVPB ONE (15:37)
[2023-01-28 17:57] LABS: Hemoglobin 4.8 g/dL (13.2-16.3); Mean Corpuscular Hemoglobin 28.7 pg (27-33); Mean Corpuscular Volume 78.1 fL (80-97); Platelet Count 304 10^3/uL (150-450); Red Blood Count 1.66 10^6/uL (4.06-5.63); White Blood Count 8.9 10^3/uL (3.6-10.2)
[2023-01-28 18:12] LABS: Calcium 7.9 mg/dL (8.6-10.3); Creatinine, Serum 3.85 mg/dL (0.67-1.17); Globulin 2.9 g/dL (2-4); Potassium 3.3 mmol/L (3.5-5.0); Total Bilirubin 0.6 mg/dL (0.2-1.0); Total Protein 5.9 g/dL (6.4-8.9); eGFR CKD-EPI 18.6 (>60)
[2023-01-28 18:26] LABS: ABS Basophils 0.1 10^3/uL (0.0-0.1); ABS Eosinophils 0.3 10^3/uL (0.0-0.5); ABS Lymphocytes 1.5 10^3/uL (1.0-4.8); ABS Monocytes 1.2 10^3/uL (0.0-1.1); ABS Neutrophils 5.8 10^3/uL (1.5-7.6); Eosinophil % 3.3 %; Lymphocyte % 16.4 %
[2023-01-28 18:27] LABS: Mean Corpuscular Hgb Conc 36.8 g/dL (31-36)
[2023-01-28 18:45] LABS: Anisocytosis 3+; Hypochromasia 1+; Macrocytosis 1+; Microcytosis 2+; Polychromasia 2+
[2023-01-28] MEDS ORDERED: Dextrose 50% Syringe 50 ml 25 GM/50 ML SYRINGE IV PUSH PRN (20:25)
[2023-01-28 21:28] LABS: Hematocrit 20.4 % (38-53); Hemoglobin 7.2 g/dL (13.2-16.3)
[2023-01-28 22:11] LABS: Vancomycin Random 20.4 mcg/mL
[2023-01-28] MEDS: Insulin GLARGINE 100 un/ml 10 ml VIAL SUBCUT SCH (22:38)
[2023-01-28] MEDS: Heparin 5000 UNITS/ML 1 mL VIAL SUBCUT SCH (22:38)
[2023-01-29] MEDS: Heparin 5000 UNITS/ML 1 mL VIAL SUBCUT SCH ×3 (06:00→21:16)
[2023-01-29 06:10] LABS: ABS Eosinophils 0.2 10^3/uL (0.0-0.5); ABS Lymphocytes 1.1 10^3/uL (1.0-4.8); ABS Monocytes 0.8 10^3/uL (0.0-1.1); ABS Neutrophils 3.6 10^3/uL (1.5-7.6); Corrected Retic Count 0.8 % (0.5-1.5); Hematocrit 20.1 % (38-53); Hematocrit for Retic CNT 20.1 % (38-53); Lymphocyte % 18.8 %; Mean Corpuscular Hemoglobin 27.2 pg (27-33); Mean Corpuscular Hgb Conc 34.9 g/dL (31-36); Mean Corpuscular Volume 77.9 fL (80-97); Mean Platelet Volume 8.4 fL (7.5-11.2); Nucleated Red Blood Cells % 0.1 /100 WBC (0.0-0.4); Platelet Count 232 10^3/uL (150-450); RBC Retic Count 2.58 10^6/ul (4.06-5.63); Red Blood Count 2.58 10^6/uL (4.06-5.63); Red Cell Distribution Width 16.7 % (12-17); White Blood Count 5.7 10^3/uL (3.6-10.2)
[2023-01-29 06:28] LABS: C Reactive Protein 99.99 mg/L (<8.01); Calcium 7.7 mg/dL (8.6-10.3); Creatinine, Serum 4.86 mg/dL (0.67-1.17); Potassium 3.4 mmol/L (3.5-5.0); eGFR CKD-EPI 14.1 (>60)
[2023-01-29 06:50] LABS: Folate 8.61 ng/mL (5.90-24.80)
[2023-01-29] MEDS: Isosorbide Mononit ER 30mg TAB PO SCH (09:52)
[2023-01-29] MEDS: Insulin GLARGINE 100 un/ml 10 ml VIAL SUBCUT SCH ×2 (09:54→21:16)
[2023-01-29] MEDS ORDERED: Sulfur Hexaflouride MICROSPHR 25 MG VIAL ONE (11:52)
[2023-01-29] MEDS ORDERED: Vancomycin 2,000 MG in NS 0.9% 250 ml 250 ML IVPB ONE (13:11)
[2023-01-29] MEDS ORDERED: NS 0.9% 1000 ml BAG 100 ML IV PRN (13:40)
[2023-01-29] MEDS ORDERED: Albumin Human 25% 25 GM/100 ML BTL IV PRN (13:40)
[2023-01-29] MEDS ORDERED: NS 0.9% 1000 ml BAG 200 ML IV PRN (13:40)
[2023-01-29 14:02] LABS: Hematocrit 21.2 % (38-53); Hemoglobin 7.5 g/dL (13.2-16.3)
[2023-01-29] MEDS ORDERED: cloNIDine 0.3 MG PATCH 0.3 MG/24 HR 7 DAY PATCH TRANSDERM SCH (21:00)
[2023-01-30] MEDS: Heparin 5000 UNITS/ML 1 mL VIAL SUBCUT SCH ×3 (06:05→22:22)
[2023-01-30 06:16] LABS: ABS Eosinophils 0.3 10^3/uL (0.0-0.5); ABS Lymphocytes 1.4 10^3/uL (1.0-4.8); ABS Monocytes 0.6 10^3/uL (0.0-1.1); ABS Neutrophils 3.1 10^3/uL (1.5-7.6); Eosinophil % 4.8 %; Hematocrit 19.6 % (38-53); Lymphocyte % 25.3 %; Mean Corpuscular Hemoglobin 28.1 pg (27-33); Mean Corpuscular Hgb Conc 35.6 g/dL (31-36); Mean Corpuscular Volume 78.8 fL (80-97); Mean Platelet Volume 8.1 fL (7.5-11.2); Platelet Count 238 10^3/uL (150-450); Red Blood Count 2.48 10^6/uL (4.06-5.63); White Blood Count 5.4 10^3/uL (3.6-10.2)
[2023-01-30 06:31] LABS: Calcium 7.7 mg/dL (8.6-10.3); Potassium 3.4 mmol/L (3.5-5.0)
[2023-01-30 06:37] LABS: Creatinine, Serum 6.41 mg/dL (0.67-1.17); eGFR CKD-EPI 10.1 (>60)
[2023-01-30] MEDS ORDERED: Potassium Chlor 20 meq TAB.ER PO ONE ×2 (07:23→14:39)
[2023-01-30] MEDS: Isosorbide Mononit ER 30mg TAB PO SCH (08:49)
[2023-01-30] MEDS: Insulin GLARGINE 100 un/ml 10 ml VIAL SUBCUT SCH ×2 (08:55→22:22)
[2023-01-30] MEDS ORDERED: Insulin GLARGINE 100 un/ml 10 ml VIAL SUBCUT ONE (09:36)
[2023-01-30] MEDS: Heparin 1,000 UNIT/ML 10 ml (10,000 UNITS) CATHLAB/DIALYSIS DIALYSIS SCH (09:43)
[2023-01-30 12:39] LABS: Hepatitis B Surface Antigen Nonreactive (Nonreactive)
[2023-01-30 12:44] LABS: Hepatitis B Core IgM Nonreactive (Nonreactive)
[2023-01-30 12:56] LABS: Hepatitis B Surface Ab Not Immune (Immune)
[2023-01-31] MEDS: Heparin 5000 UNITS/ML 1 mL VIAL SUBCUT SCH (05:55)
[2023-01-31 06:00] LABS: ABS Eosinophils 0.2 10^3/uL (0.0-0.5); ABS Lymphocytes 1.4 10^3/uL (1.0-4.8); ABS Monocytes 0.5 10^3/uL (0.0-1.1); ABS Neutrophils 3.2 10^3/uL (1.5-7.6); Eosinophil % 4.3 %; Hematocrit 18.4 % (38-53); Hemoglobin 6.5 g/dL (13.2-16.3); Lymphocyte % 26.1 %; Mean Corpuscular Hemoglobin 27.5 pg (27-33); Mean Corpuscular Hgb Conc 35.4 g/dL (31-36); Mean Corpuscular Volume 77.6 fL (80-97); Mean Platelet Volume 8.3 fL (7.5-11.2); Nucleated Red Blood Cells % 0.1 /100 WBC (0.0-0.4); Platelet Count 237 10^3/uL (150-450); Red Blood Count 2.38 10^6/uL (4.06-5.63); Red Cell Distribution Width 16.9 % (12-17); White Blood Count 5.4 10^3/uL (3.6-10.2)
[2023-01-31 06:14] LABS: Calcium 7.3 mg/dL (8.6-10.3); Creatinine, Serum 7.07 mg/dL (0.67-1.17); Magnesium 1.9 mg/dL (1.9-2.7); Potassium 3.7 mmol/L (3.5-5.0)
[2023-01-31] MEDS: Insulin GLARGINE 100 un/ml 10 ml VIAL SUBCUT SCH (07:41)
[2023-01-31] MEDS: Isosorbide Mononit ER 30mg TAB PO SCH (07:41)
[2023-01-31] MEDS ORDERED: Heparin 2 UNITS/ML IVPREMIX 1,000 UNIT/500 ML BAG IV ONE (08:44)
[2023-01-31] MEDS ORDERED: Lidocaine 1% VIAL 10 MG/ML VIAL 30 ML ONE (08:44)
[2023-01-31] MEDS ORDERED: fentaNYL 100 mcg/2 ml 50 MCG/ML VIAL ONE (08:49)
[2023-01-31] MEDS ORDERED: Midazolam 5 mg/5 ml VIAL 1 mg/ml 5 ml VIAL (5 mg) ONE (08:49)
[2023-01-31] MEDS ORDERED: Heparin 5000 UNITS/ML 1 mL VIAL ONE (08:49)
[2023-01-31] MEDS ORDERED: Vancomycin per Pharmacy 1 EA NOTE FOLLOW UP PRN (10:04)
[2023-01-31] MEDS: Heparin 1,000 UNIT/ML 10 ml (10,000 UNITS) CATHLAB/DIALYSIS DIALYSIS SCH ×3 (12:49→16:16)
[2023-01-31 16:32] VITALS: BP 156/80
== END 2023-01-31 16:38 | disposition home or self-care (01) | DRG 466 ==
LOC: ED 15:18 → EDHOLD 15:18 → SUATTDRO 19:40 → MEDTELE 21:16 → SUATTDRO 01-29 11:22
PROVIDERS: ADMIT Hospitalist; ATTEND Internal Medicine

== ENCOUNTER 2023-05-28 11:16 | Inpatient (IN) ==
[~2023-05-28 11:16] MED LIST: Ondansetron 4 mg VIAL 2 MG/ML 2 ml VIAL IV PRN
[2023-05-28 11:58] LABS: ABS Eosinophils 0.3 10^3/uL (0.0-0.5); ABS Lymphocytes 1.1 10^3/uL (1.0-4.8); ABS Monocytes 0.6 10^3/uL (0.0-1.1); ABS Neutrophils 4.8 10^3/uL (1.5-7.6); ABS Nucleated RBC 0.01 10^3/ul; Eosinophil % 4.3 %; Hematocrit 22.9 % (38-53); Hemoglobin 8.6 g/dL (13.2-16.3); Lymphocyte % 16.2 %; Mean Corpuscular Hemoglobin 32.3 pg (27-33); Mean Corpuscular Hgb Conc 37.5 g/dL (31-36); Mean Corpuscular Volume 85.9 fL (80-97); Mean Platelet Volume 7.2 fL (7.5-11.2); Nucleated Red Blood Cells % 0.1 /100 WBC (0.0-0.4); Platelet Count 202 10^3/uL (150-450); Red Blood Count 2.67 10^6/uL (4.06-5.63); Red Cell Distribution Width 15.2 % (12-17); White Blood Count 6.8 10^3/uL (3.6-10.2)
[2023-05-28 12:02] LABS: INR 1.06 (0.83-1.13)
[2023-05-28 12:20] LABS: Calcium 6.9 mg/dL (8.6-10.3); Potassium 3.7 mmol/L (3.5-5.0)
[2023-05-28 12:25] LABS: Creatinine, Serum 7.25 mg/dL (0.67-1.17); eGFR CKD-EPI 8.7 (>60)
[2023-05-28] MEDS ORDERED: Dextrose 50% Syringe 50 ml 25 GM/50 ML SYRINGE IV PUSH PRN ×2 (12:29→12:31)
[2023-05-28] MEDS ORDERED: cloNIDine 0.3 MG PATCH 0.3 MG/24 HR 7 DAY PATCH TRANSDERM SCH (13:00)
[2023-05-28] MEDS ORDERED: Cefepime 1 GM in Dextrose 1 GM/50 ML BAG IV SCH (13:00)
[2023-05-28] MEDS ORDERED: Cefepime ADVAN 1 GM in NS 0.9% 50 ML 50 ML IVPB SCH (13:00)
[2023-05-28] MEDS ORDERED: NS 0.9% 1000 ml BAG 200 ML IV PRN (13:14)
[2023-05-28] MEDS ORDERED: Albumin Human 25% 25 GM/100 ML BTL IV PRN (13:14)
[2023-05-28] MEDS ORDERED: NS 0.9% 1000 ml BAG 100 ML IV PRN (13:14)
[2023-05-28 14:41] LABS: Hepatitis B Surface Antigen Nonreactive (Nonreactive)
[2023-05-28 16:10] LABS: Hepatitis B Surface Ab Indeterminate (Immune)
[2023-05-28] MEDS: Cefepime 1 GM in Dextrose 1 GM/50 ML BAG IV SCH (17:50)
[2023-05-28] MEDS ORDERED: hydrALAZINE 20 mg/ml 1 ML Vial IV IV SLOW PU PRN (18:08)
[2023-05-28] MEDS ORDERED: hydrALAZINE 20 mg/ml 1 ML Vial IV ONE (18:13)
[2023-05-28] MEDS ORDERED: Insulin GLARGINE 100 un/ml 10 ml VIAL SUBCUT SCH (21:00)
[2023-05-29] MEDS: Insulin GLARGINE 100 un/ml 10 ml VIAL SUBCUT SCH ×2 (09:36→22:21)
[2023-05-29] MEDS ORDERED: Buffered Lidocaine 1% SYRIN 1 ml INTRADERM ONE (10:28)
[2023-05-29] MEDS ORDERED: NS 0.45% 1000 ml BAG 1,000 ML IV SCH (11:00)
[2023-05-29] MEDS ORDERED: ceFAZolin 2 GM in NS PREMIX 2 GM/100 ML BAG IVPB ONE (11:14)
[2023-05-29] MEDS ORDERED: Midazolam 5 mg/5 ml VIAL 1 mg/ml 5 ml VIAL (5 mg) ONE (11:52)
[2023-05-29] MEDS ORDERED: Ondansetron 4 mg VIAL 2 MG/ML 2 ml VIAL ONE (11:52)
[2023-05-29] MEDS ORDERED: Lidocaine 2% PF 5 ML VIAL ONE (11:52)
[2023-05-29] MEDS ORDERED: Propofol 10 MG/ML 20 ML BTL ONE ×2 (11:52→12:52)
[2023-05-29] MEDS ORDERED: fentaNYL 100 mcg/2 ml 50 MCG/ML VIAL ONE (11:52)
[2023-05-29] MEDS ORDERED: KETAMINE HCL 10 MG/ML 20 ml VIAL (200 MG) ONE (11:52)
[2023-05-29] MEDS ORDERED: Bupivacaine 0.25% SDV 30 ML ONE (11:54)
[2023-05-29] MEDS ORDERED: Lidocaine 1% w EPI 1:100,000 MDV 20 ML VIAL ONE (11:56)
[2023-05-29] MEDS ORDERED: Naloxone 0.4 mg VIAL 0.4 mg/ml 1 ml VIAL IV PRN (13:30)
[2023-05-29] MEDS: PTO: Dorzolamide/Timolol OPTH (NF) 10 ML BOT LEFT EYE SCH ×2 (15:48→22:00)
[2023-05-29] MEDS: PTO: Brimonidine 0.2% 5 ML BTL LEFT EYE SCH ×3 (15:48→22:00)
[2023-05-29] MEDS ORDERED: Dextrose 50% Syringe 50 ml 25 GM/50 ML SYRINGE IV PUSH PRN (15:50)
[2023-05-29] MEDS: Latanoprost 0.005% 2.5 ml BTL LEFT EYE SCH (22:00)
[2023-05-30] MEDS ORDERED: Vancomycin 1,000 MG in NS 0.9% 250 ml 250 ML IVPB ONE (06:00)
[2023-05-30 06:53] LABS: ABS Basophils 0.1 10^3/uL (0.0-0.1); ABS Eosinophils 0.5 10^3/uL (0.0-0.5); ABS Lymphocytes 1.7 10^3/uL (1.0-4.8); ABS Monocytes 0.8 10^3/uL (0.0-1.1); ABS Neutrophils 5.3 10^3/uL (1.5-7.6); ABS Nucleated RBC 0.01 10^3/ul; Eosinophil % 5.8 %; Hematocrit 22.4 % (38-53); Hemoglobin 8.2 g/dL (13.2-16.3); Mean Corpuscular Hemoglobin 32.1 pg (27-33); Mean Corpuscular Hgb Conc 36.7 g/dL (31-36); Mean Corpuscular Volume 87.4 fL (80-97); Mean Platelet Volume 7.6 fL (7.5-11.2); Nucleated Red Blood Cells % 0.1 /100 WBC (0.0-0.4); Platelet Count 190 10^3/uL (150-450); Red Blood Count 2.56 10^6/uL (4.06-5.63); Red Cell Distribution Width 15.4 % (12-17); White Blood Count 8.3 10^3/uL (3.6-10.2)
[2023-05-30 07:11] LABS: Calcium 6.7 mg/dL (8.6-10.3); Creatinine, Serum 7.59 mg/dL (0.67-1.17); Potassium 3.5 mmol/L (3.5-5.0); eGFR CKD-EPI 8.3 (>60)
[2023-05-30] MEDS ORDERED: Heparin 1,000 UNIT/ML 10 ml (10,000 UNITS) CATHLAB/DIALYSIS ONE (07:47)
[2023-05-30] MEDS ORDERED: fentaNYL 100 mcg/2 ml 50 MCG/ML VIAL ONE (07:47)
[2023-05-30] MEDS ORDERED: Midazolam 5 mg/5 ml VIAL 1 mg/ml 5 ml VIAL (5 mg) ONE (07:47)
[2023-05-30] MEDS: Cefepime 1 GM in Dextrose 1 GM/50 ML BAG IV SCH (08:19)
[2023-05-30] MEDS ORDERED: Iohexol 180 (CONTRAST) 10 ML SDV IV ONE ×3 (08:24→08:49)
[2023-05-30] MEDS ORDERED: Atropine 0.1 MG/ML 10 ml SYR (1 mg) ONE (09:18)
[2023-05-30] MEDS: Heparin 1,000 UNIT/ML 10 ml (10,000 UNITS) CATHLAB/DIALYSIS DIALYSIS PRN ×4 (10:38→14:40)
[2023-05-30] MEDS: PTO: Dorzolamide/Timolol OPTH (NF) 10 ML BOT LEFT EYE SCH ×2 (11:07→22:49)
[2023-05-30] MEDS: PTO: Brimonidine 0.2% 5 ML BTL LEFT EYE SCH ×3 (11:07→22:53)
[2023-05-30] MEDS: Insulin GLARGINE 100 un/ml 10 ml VIAL SUBCUT SCH ×2 (11:08→22:48)
[2023-05-30 17:16] LABS: Glucose Confirmatory 406 mg/dL (70-100)
[2023-05-30] MEDS: Latanoprost 0.005% 2.5 ml BTL LEFT EYE SCH (22:51)
[2023-05-31] MEDS ORDERED: Lactated Ringers 1000 ml BAG 1,000 ML IV SCH (06:00)
[2023-05-31] MEDS ORDERED: Buffered Lidocaine 1% SYRIN 1 ml INTRADERM ONE (06:00)
[2023-05-31 08:48] LABS: Calcium 7.3 mg/dL (8.6-10.3); Creatinine, Serum 5.75 mg/dL (0.67-1.17); Potassium 3.8 mmol/L (3.5-5.0); eGFR CKD-EPI 11.5 (>60)
[2023-05-31] MEDS: PTO: Brimonidine 0.2% 5 ML BTL LEFT EYE SCH ×3 (08:49→21:26)
[2023-05-31] MEDS: PTO: Dorzolamide/Timolol OPTH (NF) 10 ML BOT LEFT EYE SCH ×2 (08:50→21:28)
[2023-05-31] MEDS: cloNIDine 0.3 MG PATCH 0.3 MG/24 HR 7 DAY PATCH TRANSDERM SCH (08:50)
[2023-05-31] MEDS: Insulin GLARGINE 100 un/ml 10 ml VIAL SUBCUT SCH ×2 (10:09→21:20)
[2023-05-31] MEDS: Heparin 1,000 UNIT/ML 10 ml (10,000 UNITS) CATHLAB/DIALYSIS DIALYSIS PRN ×4 (13:07→17:25)
[2023-05-31] MEDS ORDERED: Insulin GLARGINE 100 un/ml 10 ml VIAL SUBCUT SCH (21:00)
[2023-05-31] MEDS: Latanoprost 0.005% 2.5 ml BTL LEFT EYE SCH (21:25)
[2023-06-01] MEDS: PTO: Brimonidine 0.2% 5 ML BTL LEFT EYE SCH ×3 (08:48→21:30)
[2023-06-01] MEDS: PTO: Dorzolamide/Timolol OPTH (NF) 10 ML BOT LEFT EYE SCH ×2 (08:48→21:32)
[2023-06-01] MEDS: Insulin GLARGINE 100 un/ml 10 ml VIAL SUBCUT SCH ×2 (08:51→21:32)
[2023-06-01] MEDS: Cefepime 1 GM in Dextrose 1 GM/50 ML BAG IV SCH (09:03)
[2023-06-01] MEDS: Latanoprost 0.005% 2.5 ml BTL LEFT EYE SCH (21:27)
[2023-06-02] MEDS: Heparin 1,000 UNIT/ML 10 ml (10,000 UNITS) CATHLAB/DIALYSIS DIALYSIS PRN ×4 (07:42→11:30)
[2023-06-02] MEDS: PTO: Brimonidine 0.2% 5 ML BTL LEFT EYE SCH ×3 (11:48→20:37)
[2023-06-02] MEDS: PTO: Dorzolamide/Timolol OPTH (NF) 10 ML BOT LEFT EYE SCH ×2 (11:48→20:27)
[2023-06-02] MEDS: Insulin GLARGINE 100 un/ml 10 ml VIAL SUBCUT SCH ×2 (11:49→20:38)
[2023-06-02] MEDS: Latanoprost 0.005% 2.5 ml BTL LEFT EYE SCH (20:13)
[2023-06-03 06:43] LABS: Calcium 8.2 mg/dL (8.6-10.3); Creatinine, Serum 5.23 mg/dL (0.67-1.17); Magnesium 1.8 mg/dL (1.9-2.7); Potassium 4.5 mmol/L (3.5-5.0); eGFR CKD-EPI 12.9 (>60)
[2023-06-03] MEDS ORDERED: Magnesium Sulfate 2 gm BAG 2 GM/50 ML BAG IVPB ONE (07:13)
[2023-06-03] MEDS: Insulin GLARGINE 100 un/ml 10 ml VIAL SUBCUT SCH (09:35)
[2023-06-03] MEDS: Cefepime 1 GM in Dextrose 1 GM/50 ML BAG IV SCH (09:49)
[2023-06-03] MEDS: PTO: Dorzolamide/Timolol OPTH (NF) 10 ML BOT LEFT EYE SCH ×2 (09:54→21:02)
[2023-06-03] MEDS: PTO: Brimonidine 0.2% 5 ML BTL LEFT EYE SCH ×3 (09:54→20:52)
[2023-06-03] MEDS: Latanoprost 0.005% 2.5 ml BTL LEFT EYE SCH (19:35)
[2023-06-03] MEDS ORDERED: Insulin GLARGINE 100 un/ml 10 ml VIAL SUBCUT SCH (21:00)
[2023-06-04] MEDS: PTO: Brimonidine 0.2% 5 ML BTL LEFT EYE SCH ×3 (08:18→20:22)
[2023-06-04] MEDS: Insulin GLARGINE 100 un/ml 10 ml VIAL SUBCUT SCH ×2 (08:19→20:28)
[2023-06-04] MEDS: PTO: Dorzolamide/Timolol OPTH (NF) 10 ML BOT LEFT EYE SCH ×2 (08:22→20:29)
[2023-06-04] MEDS: Latanoprost 0.005% 2.5 ml BTL LEFT EYE SCH (20:12)
[2023-06-05] MEDS: Heparin 1,000 UNIT/ML 10 ml (10,000 UNITS) CATHLAB/DIALYSIS DIALYSIS PRN ×4 (07:34→11:20)
[2023-06-05] MEDS: PTO: Dorzolamide/Timolol OPTH (NF) 10 ML BOT LEFT EYE SCH ×2 (12:10→21:32)
[2023-06-05] MEDS: PTO: Brimonidine 0.2% 5 ML BTL LEFT EYE SCH ×3 (12:10→20:56)
[2023-06-05] MEDS: Insulin GLARGINE 100 un/ml 10 ml VIAL SUBCUT SCH ×2 (12:13→21:33)
[2023-06-05 14:45] LABS: Hematocrit 24.8 % (38-53); Mean Corpuscular Hemoglobin 31.9 pg (27-33); Mean Corpuscular Hgb Conc 36.4 g/dL (31-36); Mean Corpuscular Volume 87.7 fL (80-97); Mean Platelet Volume 7.6 fL (7.5-11.2); Platelet Count 202 10^3/uL (150-450); Red Blood Count 2.83 10^6/uL (4.06-5.63); Red Cell Distribution Width 16.2 % (12-17); White Blood Count 7.3 10^3/uL (3.6-10.2)
[2023-06-05 15:32] LABS: Calcium 8.3 mg/dL (8.6-10.3); Creatinine, Serum 5.29 mg/dL (0.67-1.17); Potassium 4.3 mmol/L (3.5-5.0); eGFR CKD-EPI 12.7 (>60)
[2023-06-05] MEDS: Latanoprost 0.005% 2.5 ml BTL LEFT EYE SCH (20:45)
[2023-06-06] MEDS ORDERED: Buffered Lidocaine 1% SYRIN 1 ml INTRADERM ONE (06:00)
[2023-06-06] MEDS ORDERED: NS 0.45% 1000 ml BAG 1,000 ML IV SCH (06:00)
[2023-06-06 06:07] LABS: ABS Basophils 0.1 10^3/uL (0.0-0.1); ABS Eosinophils 0.7 10^3/uL (0.0-0.5); ABS Monocytes 0.9 10^3/uL (0.0-1.1); ABS Neutrophils 4.5 10^3/uL (1.5-7.6); Eosinophil % 8.4 %; Hematocrit 24.9 % (38-53); Hemoglobin 9.1 g/dL (13.2-16.3); Lymphocyte % 24.3 %; Mean Corpuscular Hgb Conc 36.6 g/dL (31-36); Mean Corpuscular Volume 87.3 fL (80-97); Mean Platelet Volume 7.6 fL (7.5-11.2); Platelet Count 202 10^3/uL (150-450); Red Blood Count 2.85 10^6/uL (4.06-5.63); Red Cell Distribution Width 16.4 % (12-17); White Blood Count 8.2 10^3/uL (3.6-10.2)
[2023-06-06 06:17] LABS: Calcium 8.2 mg/dL (8.6-10.3); Creatinine, Serum 6.41 mg/dL (0.67-1.17); Magnesium 2.1 mg/dL (1.9-2.7); Potassium 4.7 mmol/L (3.5-5.0); eGFR CKD-EPI 10.1 (>60)
[2023-06-06] MEDS ORDERED: Propofol 10 MG/ML 20 ML BTL ONE (06:52)
[2023-06-06] MEDS ORDERED: Heparin *DIALYSIS* ONLY 1,000 UNITS/ML VIAL ONE (06:52)
[2023-06-06] MEDS ORDERED: Sodium Bicarbonate 8.4% SYR 50 ml SYRINGE ONE (06:52)
[2023-06-06] MEDS ORDERED: Lidocaine 1% VIAL 10 MG/ML 30 ML VIAL ONE (06:52)
[2023-06-06] MEDS ORDERED: fentaNYL 100 mcg/2 ml 50 MCG/ML VIAL ONE ×2 (06:58→08:07)
[2023-06-06] MEDS ORDERED: Midazolam 2 mg/2 ml VIAL 1 mg/ml 2 ml VIAL (2 mg) ONE (06:58)
[2023-06-06] MEDS ORDERED: Bupivacaine 0.25% EPI 200,000 30 ML SDV ONE (07:03)
[2023-06-06] MEDS ORDERED: Heparin 5000 UNITS/ML 1 mL VIAL ONE (07:03)
[2023-06-06] MEDS ORDERED: ceFAZolin 2 GM in NS PREMIX 2 GM/100 ML BAG IVPB ONE (07:24)
[2023-06-06] MEDS ORDERED: Ondansetron 4 mg VIAL 2 MG/ML 2 ml VIAL ONE (07:47)
[2023-06-06] MEDS ORDERED: Propofol 2,000 MG/200 ML BTL ONE (08:50)
[2023-06-06] MEDS: Insulin GLARGINE 100 un/ml 10 ml VIAL SUBCUT SCH (12:40)
[2023-06-06] MEDS: PTO: Dorzolamide/Timolol OPTH (NF) 10 ML BOT LEFT EYE SCH ×2 (12:48→21:10)
[2023-06-06] MEDS: PTO: Brimonidine 0.2% 5 ML BTL LEFT EYE SCH ×3 (12:48→21:10)
[2023-06-06] MEDS ORDERED: Cefepime 1 GM in Dextrose 1 GM/50 ML BAG IV SCH (17:00)
[2023-06-06] MEDS: Latanoprost 0.005% 2.5 ml BTL LEFT EYE SCH (21:10)
[2023-06-07 06:08] LABS: ABS Basophils 0.1 10^3/uL (0.0-0.1); ABS Eosinophils 0.5 10^3/uL (0.0-0.5); ABS Lymphocytes 1.7 10^3/uL (1.0-4.8); ABS Neutrophils 5.9 10^3/uL (1.5-7.6); Eosinophil % 5.4 %; Hematocrit 23.8 % (38-53); Hemoglobin 8.6 g/dL (13.2-16.3); Lymphocyte % 18.5 %; Mean Corpuscular Hemoglobin 32.1 pg (27-33); Mean Corpuscular Hgb Conc 36.2 g/dL (31-36); Mean Corpuscular Volume 88.8 fL (80-97); Platelet Count 191 10^3/uL (150-450); Red Blood Count 2.68 10^6/uL (4.06-5.63); Red Cell Distribution Width 16.8 % (12-17); White Blood Count 9.2 10^3/uL (3.6-10.2)
[2023-06-07 06:39] LABS: Calcium 7.8 mg/dL (8.6-10.3); Creatinine, Serum 7.55 mg/dL (0.67-1.17); Potassium 5.3 mmol/L (3.5-5.0); eGFR CKD-EPI 8.3 (>60)
[2023-06-07] MEDS: PTO: Dorzolamide/Timolol OPTH (NF) 10 ML BOT LEFT EYE SCH (08:43)
[2023-06-07] MEDS: cloNIDine 0.3 MG PATCH 0.3 MG/24 HR 7 DAY PATCH TRANSDERM SCH (08:44)
[2023-06-07] MEDS ORDERED: Insulin GLARGINE 100 un/ml 10 ml VIAL SUBCUT SCH (09:00)
[2023-06-07] MEDS: Heparin 1,000 UNIT/ML 10 ml (10,000 UNITS) CATHLAB/DIALYSIS DIALYSIS PRN ×4 (13:30→17:15)
[2023-06-07] MEDS: PTO: Brimonidine 0.2% 5 ML BTL LEFT EYE SCH ×2 (16:29→16:30)
[2023-06-07 18:54] VITALS: BP 163/77
== END 2023-06-07 18:15 | disposition home or self-care (01) | DRG 950 ==
LOC: MED 11:16 → SUATTDRO 11:16
PROVIDERS: ADMIT Student in an Organized Health Care Education/Training Program; ATTEND Student in an Organized Health Care Education/Training Program
PROC: O.GEAVF (2023-06-06 07:30)

== ENCOUNTER 2023-07-13 14:31 | Inpatient (IN) ==
[2023-07-13] MEDS ORDERED: Cefepime 1 GM in Dextrose 1 GM/50 ML BAG IV ONE (16:07)
[2023-07-13 16:24] LABS: ABS Basophils 0.1 10^3/uL (0.0-0.1); ABS Eosinophils 0.3 10^3/uL (0.0-0.5); ABS Lymphocytes 1.2 10^3/uL (1.0-4.8); ABS Monocytes 0.7 10^3/uL (0.0-1.1); ABS Neutrophils 4.6 10^3/uL (1.5-7.6); Eosinophil % 3.6 %; Hematocrit 23.7 % (38-53); Hemoglobin 8.4 g/dL (13.2-16.3); Lymphocyte % 17.5 %; Mean Corpuscular Hemoglobin 32.5 pg (27-33); Mean Corpuscular Hgb Conc 35.3 g/dL (31-36); Mean Corpuscular Volume 92.2 fL (80-97); Mean Platelet Volume 7.6 fL (7.5-11.2); Nucleated Red Blood Cells % 0.1 %/100WBC (0.0-0.8); Platelet Count 234 10^3/uL (150-450); Red Blood Count 2.57 10^6/uL (4.06-5.63); White Blood Count 6.9 10^3/uL (3.6-10.2)
[2023-07-13 16:45] LABS: Albumin 3.7 g/dL (3.2-5.2); Albumin/Globulin Ratio 1.3 (1-3); C Reactive Protein 3.96 mg/L (<8.01); Calcium 7.6 mg/dL (8.6-10.3); Creatinine, Serum 8.15 mg/dL (0.67-1.17); Globulin 2.9 g/dL (2-4); Potassium 4.9 mmol/L (3.5-5.0); Total Bilirubin 0.6 mg/dL (0.2-1.0); Total Protein 6.6 g/dL (6.4-8.9); eGFR CKD-EPI 7.6 (>60)
[2023-07-13] MEDS ORDERED: Dextrose 50% Syringe 50 ml 25 GM/50 ML SYRINGE IV PUSH PRN (20:20)
[2023-07-13] MEDS: Heparin 5000 UNITS/ML 1 mL VIAL SUBCUT SCH (22:29)
[2023-07-14 07:00] LABS: ABS Eosinophils 0.3 10^3/uL (0.0-0.5); ABS Lymphocytes 1.3 10^3/uL (1.0-4.8); ABS Monocytes 0.7 10^3/uL (0.0-1.1); ABS Neutrophils 3.2 10^3/uL (1.5-7.6); Eosinophil % 4.6 %; Hematocrit 22.3 % (38-53); Hemoglobin 7.8 g/dL (13.2-16.3); Lymphocyte % 23.3 %; Mean Corpuscular Hemoglobin 32.2 pg (27-33); Mean Corpuscular Volume 91.8 fL (80-97); Mean Platelet Volume 7.9 fL (7.5-11.2); Platelet Count 192 10^3/uL (150-450); Red Blood Count 2.43 10^6/uL (4.06-5.63); White Blood Count 5.5 10^3/uL (3.6-10.2)
[2023-07-14 07:10] LABS: Calcium 7.5 mg/dL (8.6-10.3); Creatinine, Serum 8.52 mg/dL (0.67-1.17); Magnesium 2.2 mg/dL (1.9-2.7); Potassium 4.1 mmol/L (3.5-5.0); eGFR CKD-EPI 7.2 (>60)
[2023-07-14] MEDS ORDERED: Cefepime ADVAN 1 GM in NS 0.9% 50 ML 50 ML IVPB SCH (09:00)
[2023-07-14] MEDS: Heparin 5000 UNITS/ML 1 mL VIAL SUBCUT SCH ×2 (09:19→20:12)
[2023-07-14] MEDS ORDERED: Vancomycin 1,000 MG in NS 0.9% 250 ml 250 ML IVPB ONE (09:56)
[2023-07-14] MEDS ORDERED: Vancomycin per Pharmacy 1 EA NOTE FOLLOW UP SCH (10:00)
[2023-07-14] MEDS ORDERED: Vancomycin 1,500 MG in NS 0.9% 250 ml 250 ML IVPB ONE (10:30)
[2023-07-14] MEDS ORDERED: Vancomycin - DIALYSIS DOSING 1 EA NOTE FOLLOW UP SCH (11:00)
[2023-07-14] MEDS ORDERED: Iodixanol (CONTRAST) 320 MG/ML 100 ML SDV IV ONE (11:12)
[2023-07-14] MEDS ORDERED: Vancomycin 750 MG in NS 0.9% 250 ML IVPB ONE (15:00)
[2023-07-14] MEDS: Heparin 1,000 UNIT/ML 10 ml (10,000 UNITS) CATHLAB/DIALYSIS SCH (15:15)
[2023-07-14] MEDS ORDERED: Cefepime 1 GM in Dextrose 1 GM/50 ML BAG IV SCH (16:00)
[2023-07-15] MEDS: Heparin 5000 UNITS/ML 1 mL VIAL SUBCUT SCH ×2 (07:52→21:13)
[2023-07-15 09:20] LABS: ABS Eosinophils 0.2 10^3/uL (0.0-0.5); ABS Monocytes 0.5 10^3/uL (0.0-1.1); ABS Neutrophils 2.8 10^3/uL (1.5-7.6); ABS Nucleated RBC 0.02 10^3/ul; Eosinophil % 4.9 %; Hematocrit 21.9 % (38-53); Hemoglobin 7.8 g/dL (13.2-16.3); Lymphocyte % 21.6 %; Mean Corpuscular Hemoglobin 32.3 pg (27-33); Mean Corpuscular Hgb Conc 35.4 g/dL (31-36); Mean Corpuscular Volume 91.3 fL (80-97); Mean Platelet Volume 7.3 fL (7.5-11.2); Nucleated Red Blood Cells % 0.4 %/100WBC (0.0-0.8); Platelet Count 177 10^3/uL (150-450); Red Cell Distribution Width 19.1 % (12-17); White Blood Count 4.6 10^3/uL (3.6-10.2)
[2023-07-15] MEDS ORDERED: NS 0.9% 1000 ml BAG 200 ML IV PRN (09:21)
[2023-07-15] MEDS ORDERED: NS 0.9% 1000 ml BAG 100 ML IV PRN (09:21)
[2023-07-15] MEDS ORDERED: Albumin Human 25% 25 GM/100 ML BTL IV PRN (09:21)
[2023-07-15] MEDS ORDERED: Vancomycin Random Level NOTE FOLLOW UP ONE (09:29)
[2023-07-15 10:12] LABS: Calcium 7.2 mg/dL (8.6-10.3); Creatinine, Serum 8.37 mg/dL (0.67-1.17); Potassium 4.4 mmol/L (3.5-5.0); Vancomycin Random 19.4 mcg/mL; eGFR CKD-EPI 7.3 (>60)
[2023-07-15 11:43] LABS: Hepatitis B Surface Antigen Nonreactive (Nonreactive)
[2023-07-15 13:34] LABS: Hepatitis B Surface Ab Indeterminate (Immune)
[2023-07-15 13:58] LABS: C Reactive Protein 2.04 mg/L (<8.01)
[2023-07-15] MEDS: Heparin 1,000 UNIT/ML 10 ml (10,000 UNITS) CATHLAB/DIALYSIS DIALYSIS PRN ×4 (16:05→20:40)
[2023-07-15] MEDS ORDERED: Cefepime 1 GM in Dextrose 1 GM/50 ML BAG IV SCH (20:00)
[2023-07-15] MEDS ORDERED: Vancomycin 1000 MG in NS 0.9% 250 ML IVPB ONE (21:00)
[2023-07-15] MEDS: Heparin 1,000 UNIT/ML 10 ml (10,000 UNITS) CATHLAB/DIALYSIS SCH (22:24)
[2023-07-16] MEDS: Ondansetron 4 mg VIAL 2 MG/ML 2 ml VIAL IV PRN ×2 (03:42→09:50)
[2023-07-16 04:17] LABS: Creatinine, Serum 6.43 mg/dL (0.67-1.17); Potassium 3.8 mmol/L (3.5-5.0)
[2023-07-16 04:18] LABS: Calcium 7.7 mg/dL (8.6-10.3); eGFR CKD-EPI 10.1 (>60)
[2023-07-16] MEDS ORDERED: Vancomycin Trough Check NOTE FOLLOW UP ONE (06:00)
[2023-07-16 07:01] LABS: ABS Eosinophils 0.2 10^3/uL (0.0-0.5); ABS Lymphocytes 1.1 10^3/uL (1.0-4.8); ABS Monocytes 0.6 10^3/uL (0.0-1.1); ABS Neutrophils 2.5 10^3/uL (1.5-7.6); Hematocrit 22.8 % (38-53); Lymphocyte % 24.6 %; Mean Corpuscular Hemoglobin 32.1 pg (27-33); Mean Corpuscular Hgb Conc 35.3 g/dL (31-36); Mean Corpuscular Volume 91.1 fL (80-97); Mean Platelet Volume 8.1 fL (7.5-11.2); Nucleated Red Blood Cells % 0.1 %/100WBC (0.0-0.8); Platelet Count 202 10^3/uL (150-450); Red Blood Count 2.51 10^6/uL (4.06-5.63); Red Cell Distribution Width 19.2 % (12-17); White Blood Count 4.5 10^3/uL (3.6-10.2)
[2023-07-16 07:50] LABS: Magnesium 1.8 mg/dL (1.9-2.7)
[2023-07-16] MEDS: Heparin 5000 UNITS/ML 1 mL VIAL SUBCUT SCH ×2 (09:00→21:04)
[2023-07-16] MEDS: Calcium Carb (TUMS) 500 mg CHEW TAB PO SCH ×2 (09:01→21:04)
[2023-07-16] MEDS: CALCIUM GLUCONATE 1GM/50ML NS 1 GM/50 ML BAG IV SCH ×2 (09:05→10:12)
[2023-07-16] MEDS ORDERED: Famotidine IV 10 MG/ML 2 ml VIAL (20 mg) IV SLOW PU ONE (11:01)
[2023-07-16] MEDS: cefTRIAXone 2 gm/50 mL D5W 2 GM/50 ML BAG IV SCH (11:20)
[2023-07-16] MEDS ORDERED: Famotidine IV 10 MG/ML 2 ml VIAL (20 mg) IV SLOW PU PRN (14:09)
[2023-07-16] MEDS: Heparin 1,000 UNIT/ML 10 ml (10,000 UNITS) CATHLAB/DIALYSIS DIALYSIS PRN ×4 (14:30→19:00)
[2023-07-16] MEDS ORDERED: Alteplase (CATHFLO) 2 MG VIAL IV ONE (14:31)
[2023-07-16] MEDS: Heparin 1,000 UNIT/ML 10 ml (10,000 UNITS) CATHLAB/DIALYSIS SCH (20:42)
[2023-07-17 06:52] LABS: ABS Eosinophils 0.3 10^3/uL (0.0-0.5); ABS Lymphocytes 1.3 10^3/uL (1.0-4.8); ABS Monocytes 0.6 10^3/uL (0.0-1.1); ABS Neutrophils 2.9 10^3/uL (1.5-7.6); Hematocrit 22.4 % (38-53); Hemoglobin 7.8 g/dL (13.2-16.3); Lymphocyte % 26.3 %; Mean Corpuscular Hemoglobin 32.1 pg (27-33); Mean Corpuscular Hgb Conc 34.8 g/dL (31-36); Mean Corpuscular Volume 92.2 fL (80-97); Mean Platelet Volume 7.7 fL (7.5-11.2); Nucleated Red Blood Cells % 0.1 %/100WBC (0.0-0.8); Platelet Count 187 10^3/uL (150-450); Red Blood Count 2.43 10^6/uL (4.06-5.63); White Blood Count 5.1 10^3/uL (3.6-10.2)
[2023-07-17 07:14] LABS: Calcium 7.9 mg/dL (8.6-10.3); Creatinine, Serum 6.05 mg/dL (0.67-1.17); Magnesium 1.8 mg/dL (1.9-2.7); Phosphorus 5.5 mg/dL (2.5-5.0); Potassium 4.4 mmol/L (3.5-5.0); eGFR CKD-EPI 10.8 (>60)
[2023-07-17] MEDS ORDERED: Alteplase (CATHFLO) 2 MG VIAL PRN (07:16)
[2023-07-17] MEDS: Calcium Carb (TUMS) 500 mg CHEW TAB PO SCH ×2 (08:01→20:18)
[2023-07-17] MEDS: Heparin 5000 UNITS/ML 1 mL VIAL SUBCUT SCH ×2 (08:01→20:20)
[2023-07-17] MEDS: Heparin 1,000 UNIT/ML 10 ml (10,000 UNITS) CATHLAB/DIALYSIS DIALYSIS PRN ×5 (08:14→12:18)
[2023-07-17] MEDS: cefTRIAXone 2 gm/50 mL D5W 2 GM/50 ML BAG IV SCH (11:26)
[2023-07-17] MEDS: Cefepime 1 GM in Dextrose 1 GM/50 ML BAG IV SCH (16:44)
[2023-07-17] MEDS: Heparin 1,000 UNIT/ML 10 ml (10,000 UNITS) CATHLAB/DIALYSIS SCH (23:52)
[2023-07-18 06:22] LABS: ABS Eosinophils 0.3 10^3/uL (0.0-0.5); ABS Lymphocytes 1.5 10^3/uL (1.0-4.8); ABS Monocytes 0.6 10^3/uL (0.0-1.1); ABS Neutrophils 2.6 10^3/uL (1.5-7.6); ABS Nucleated RBC 0.01 10^3/ul; Eosinophil % 6.1 %; Hematocrit 21.6 % (38-53); Hemoglobin 7.8 g/dL (13.2-16.3); Lymphocyte % 29.2 %; Mean Corpuscular Hemoglobin 32.5 pg (27-33); Mean Corpuscular Hgb Conc 36.2 g/dL (31-36); Mean Corpuscular Volume 89.6 fL (80-97); Mean Platelet Volume 7.9 fL (7.5-11.2); Nucleated Red Blood Cells % 0.1 %/100WBC (0.0-0.8); Platelet Count 174 10^3/uL (150-450); Red Blood Count 2.41 10^6/uL (4.06-5.63); Red Cell Distribution Width 18.5 % (12-17); White Blood Count 5.1 10^3/uL (3.6-10.2)
[2023-07-18 06:43] LABS: Calcium 8.1 mg/dL (8.6-10.3); Creatinine, Serum 5.38 mg/dL (0.67-1.17); Magnesium 1.8 mg/dL (1.9-2.7); Potassium 4.3 mmol/L (3.5-5.0); eGFR CKD-EPI 12.5 (>60)
[2023-07-18] MEDS ORDERED: Vancomycin 1,000 MG in NS 0.9% 250 ml 250 ML IVPB ONE (07:32)
[2023-07-18] MEDS: Calcium Carb (TUMS) 500 mg CHEW TAB PO SCH (08:11)
[2023-07-18] MEDS: Heparin 5000 UNITS/ML 1 mL VIAL SUBCUT SCH (08:11)
[2023-07-18] MEDS ORDERED: Polyethylene Glycol 3350 17 GM PACKET PO PRN (11:29)
[2023-07-18] MEDS ORDERED: Senna TAB 8.6 mg TAB PO PRN (11:29)
[2023-07-18] MEDS ORDERED: Magnesium Hydroxide LIQ 30 ML UDC PO PRN (11:29)
[2023-07-18] MEDS ORDERED: Midazolam 5 mg/5 ml VIAL 1 mg/ml 5 ml VIAL (5 mg) ONE (12:43)
[2023-07-18] MEDS ORDERED: fentaNYL 100 mcg/2 ml 50 MCG/ML VIAL ONE (12:43)
[2023-07-18] MEDS ORDERED: Iohexol 350 (CONTRAST) 100 ML PAK IV ONE (13:20)
[2023-07-18 14:34] VITALS: BP 128/77
[2023-07-18] MEDS: Cefepime 1 GM in Dextrose 1 GM/50 ML BAG IV SCH (15:46)
[2023-07-18] MEDS ORDERED: Magnesium Hydroxide LIQ 30 ML UDC PO SCH (21:00)
== END 2023-07-18 17:00 | disposition home or self-care (01) | DRG 447 ==
LOC: ED 14:31 → SUATTDRO 17:27 → EDHOLD 17:27 → MED 18:50
PROVIDERS: ADMIT Student in an Organized Health Care Education/Training Program; ATTEND Internal Medicine

== ENCOUNTER 2024-03-04 10:17 | Observation (INO) ==
[2024-03-04] MEDS: Lactated Ringers 1000 ml BAG IV.FLUID IV ONE (11:36)
[2024-03-04] MEDS: Ondansetron 4 mg VIAL 2 MG/ML 2 ml VIAL IV ONE (11:37)
[2024-03-04 12:05] LABS: ABS Lymphocytes 0.4 10^3/uL (1.0-4.8); ABS Monocytes 0.9 10^3/uL (0.0-1.1); ABS Neutrophils 6.8 10^3/uL (1.5-7.6); Eosinophil % 0.1 %; Hematocrit 29.5 % (38-53); Hemoglobin 10.1 g/dL (13.2-16.3); Lymphocyte % 5.3 %; Mean Corpuscular Hemoglobin 31.3 pg (27-33); Mean Corpuscular Hgb Conc 34.2 g/dL (31-36); Mean Corpuscular Volume 91.5 fL (80-97); Mean Platelet Volume 7.9 fL (7.5-11.2); Platelet Count 156 10^3/uL (150-450); Red Blood Count 3.22 10^6/uL (4.06-5.63); Red Cell Distribution Width 17.8 % (12-17); White Blood Count 8.1 10^3/uL (3.6-10.2)
[2024-03-04 12:46] LABS: Albumin 3.2 g/dL (3.2-5.2); Albumin/Globulin Ratio 1.2 (1-3); C Reactive Protein 159.72 mg/L (<8.01); Calcium 7.6 mg/dL (8.6-10.3); Creatinine, Serum 6.64 mg/dL (0.67-1.17); Globulin 2.7 g/dL (2-4); Magnesium 1.5 mg/dL (1.9-2.7); Potassium 4.6 mmol/L (3.5-5.0); Total Bilirubin 1.1 mg/dL (0.2-1.0); Total Protein 5.9 g/dL (6.4-8.9); eGFR CKD-EPI 9.6 (>60)
[2024-03-04] MEDS ORDERED: Dextrose 50% Syringe 50 ml 25 GM/50 ML SYRINGE IV PUSH PRN (16:18)
[2024-03-04] MEDS: HYDROmorphone 0.5 MG/0.5 ML SYRINGE IV PRN (17:01)
[2024-03-04] MEDS: Piperacillin/Tazobac 3.375 BAG 3.375 GM/100 ML BAG IV ONE (17:03)
[2024-03-04 17:22] LABS: Urine Appearance Clear; Urine Bilirubin Negative (Negative); Urine Blood 1+ (Negative); Urine Color Light-Yellow; Urine Glucose 4+ (>=1000 mg/dL) (Negative); Urine Ketones Negative (Negative); Urine Nitrite Negative (Negative); Urine Protein 3+ (>=300 mg/dL) (Negative); Urine Urobilinogen Negative (Negative); Urine pH 6.5 (5.0-8.0)
[2024-03-04 17:32] LABS: Urine Bacteria Absent /HPF (Absent); Urine Red Blood Cell Trace(0-2/hpf) /HPF (0-Trace); Urine White Blood Cell Trace(0-5/hpf) /HPF (0-Trace)
[2024-03-04] MEDS: Iodixanol (CONTRAST) 320 MG/ML 100 ML SDV IV ONE (18:30)
[2024-03-04] MEDS ORDERED: Zosyn per Pharmacy NOTE FOLLOW UP SCH (20:00)
[2024-03-04] MEDS ORDERED: Piperacillin/Tazobac 3.375 BAG 3.375 GM/100 ML BAG IV ONE (21:00)
[2024-03-04] MEDS: Insulin GLARGINE 100 un/ml 10 ml VIAL SUBCUT SCH (21:33)
[2024-03-04] MEDS: ZOSYN 3.375 GM Q12H per EXTENDED INFUSION IV SCH (21:35)
[2024-03-04] MEDS: Latanoprost 0.005% 2.5 ml BTL LEFT EYE SCH (21:35)
[2024-03-04] MEDS: Ondansetron 4 mg VIAL 2 MG/ML 2 ml VIAL IV PRN (22:32)
[2024-03-05 07:40] LABS: ABS Eosinophils 0.4 10^3/uL (0.0-0.5); ABS Monocytes 0.4 10^3/uL (0.0-1.1); Hematocrit 24.8 % (38-53); Hemoglobin 8.7 g/dL (13.2-16.3); Lymphocyte % 20.9 %; Mean Corpuscular Hemoglobin 31.8 pg (27-33); Mean Corpuscular Hgb Conc 35.1 g/dL (31-36); Mean Corpuscular Volume 90.8 fL (80-97); Mean Platelet Volume 8.1 fL (7.5-11.2); Nucleated Red Blood Cells % 0.1 %/100WBC (0.0-0.8); Platelet Count 145 10^3/uL (150-450); Red Blood Count 2.73 10^6/uL (4.06-5.63); Red Cell Distribution Width 17.7 % (12-17); White Blood Count 4.9 10^3/uL (3.6-10.2)
[2024-03-05 09:06] LABS: Calcium 7.1 mg/dL (8.6-10.3); Creatinine, Serum 7.35 mg/dL (0.67-1.17); Magnesium 1.7 mg/dL (1.9-2.7); Potassium 4.3 mmol/L (3.5-5.0); eGFR CKD-EPI 8.5 (>60)
[2024-03-05] MEDS: Ondansetron 4 mg VIAL 2 MG/ML 2 ml VIAL IV PRN ×2 (15:38→22:10)
[2024-03-05] MEDS ORDERED: Metoclopramide 5 MG/ML VIAL (10 mg) IV PRN (18:17)
[2024-03-05] MEDS ORDERED: Ondansetron 4 mg VIAL 2 MG/ML 2 ml VIAL IV PRN (18:20)
[2024-03-05] MEDS: Metoclopramide 5 MG/ML VIAL (10 mg) IV ONE (18:27)
[2024-03-05 19:31] LABS: Calcium 7.7 mg/dL (8.6-10.3); Creatinine, Serum 7.8 mg/dL (0.67-1.17); Potassium 4.6 mmol/L (3.5-5.0); eGFR CKD-EPI 7.9 (>60)
[2024-03-05 23:04] LABS: Magnesium 1.9 mg/dL (1.9-2.7)
[2024-03-06 06:03] LABS: ABS Eosinophils 0.5 10^3/uL (0.0-0.5); ABS Monocytes 0.6 10^3/uL (0.0-1.1); ABS Neutrophils 4.4 10^3/uL (1.5-7.6); Eosinophil % 8.1 %; Hematocrit 25.6 % (38-53); Hemoglobin 8.9 g/dL (13.2-16.3); Lymphocyte % 15.8 %; Mean Corpuscular Hemoglobin 31.2 pg (27-33); Mean Corpuscular Hgb Conc 34.7 g/dL (31-36); Mean Corpuscular Volume 90.1 fL (80-97); Mean Platelet Volume 7.7 fL (7.5-11.2); Nucleated Red Blood Cells % 0.1 %/100WBC (0.0-0.8); Platelet Count 194 10^3/uL (150-450); Red Blood Count 2.84 10^6/uL (4.06-5.63); Red Cell Distribution Width 17.4 % (12-17); White Blood Count 6.6 10^3/uL (3.6-10.2)
[2024-03-06 06:14] LABS: Activated Partial Thrombo Time 30.8 seconds (26.0-38.0); INR 1.2 (0.83-1.13)
[2024-03-06 06:39] LABS: Albumin 2.8 g/dL (3.2-5.2); Albumin/Globulin Ratio 1.1 (1-3); Calcium 7.4 mg/dL (8.6-10.3); Creatinine, Serum 8.33 mg/dL (0.67-1.17); Globulin 2.6 g/dL (2-4); Potassium 4.4 mmol/L (3.5-5.0); Total Bilirubin 0.8 mg/dL (0.2-1.0); Total Protein 5.4 g/dL (6.4-8.9); eGFR CKD-EPI 7.3 (>60)
[2024-03-06] MEDS: Heparin 5000 UNITS/ML 1 mL VIAL SUBCUT SCH (10:10)
[2024-03-06] MEDS: Furosemide 40 mg/4 ml IV VIAL IV ONE (18:00)
[2024-03-06] MEDS: Insulin GLARGINE 100 un/ml 10 ml VIAL SUBCUT SCH (21:24)
[2024-03-07 05:55] VITALS: BP 135/67
[2024-03-07 07:25] LABS: Hematocrit 25.4 % (38-53); Mean Corpuscular Hemoglobin 31.9 pg (27-33); Mean Corpuscular Hgb Conc 35.3 g/dL (31-36); Mean Corpuscular Volume 90.3 fL (80-97); Mean Platelet Volume 7.4 fL (7.5-11.2); Platelet Count 192 10^3/uL (150-450); Red Blood Count 2.81 10^6/uL (4.06-5.63); Red Cell Distribution Width 17.4 % (12-17); White Blood Count 6.5 10^3/uL (3.6-10.2)
[2024-03-07] MEDS: cefTRIAXone 1 gm/50 mL D5W 1 GM/50 ML BAG IV SCH (08:00)
[2024-03-07] MEDS: Cefepime ADVAN 1 GM in NS 0.9% 50 ML 50 ML IVPB SCH (08:28)
[2024-03-07 08:29] LABS: Calcium 7.2 mg/dL (8.6-10.3); Creatinine, Serum 9.59 mg/dL (0.67-1.17); Potassium 4.4 mmol/L (3.5-5.0); eGFR CKD-EPI 6.2 (>60)
[2024-03-07] MEDS: Cefepime 1 GM in Dextrose 1 GM/50 ML BAG IV SCH (10:19)
== END 2024-03-07 10:00 | disposition home or self-care (01) ==
LOC: ED 10:17 → EDHOLD 10:17 → SSU 14:38
PROVIDERS: ADMIT Student in an Organized Health Care Education/Training Program; ATTEND Student in an Organized Health Care Education/Training Program

== ENCOUNTER 2024-04-29 23:24 | Inpatient (IN) ==
[2024-04-29] MEDS ORDERED: Heparin 5000 UNITS/ML 1 mL VIAL IV SCH (23:45)
[2024-04-30] MEDS: Heparin DRIP 25,000 UNITS BAG 25,000 UNITS/250 ML BAG IV SCH (00:11)
[2024-04-30 00:19] LABS: ABS Basophils 0.1 10^3/uL (0.0-0.1); ABS Eosinophils 0.5 10^3/uL (0.0-0.5); ABS Lymphocytes 1.2 10^3/uL (1.0-4.8); ABS Monocytes 1.5 10^3/uL (0.0-1.1); ABS Neutrophils 7.2 10^3/uL (1.5-7.6); ABS Nucleated RBC 0.01 10^3/ul; Eosinophil % 4.7 %; Hematocrit 24.4 % (38-53); Hemoglobin 8.7 g/dL (13.2-16.3); Lymphocyte % 11.1 %; Mean Corpuscular Hemoglobin 30.7 pg (27-33); Mean Corpuscular Hgb Conc 35.6 g/dL (31-36); Mean Corpuscular Volume 86.2 fL (80-97); Nucleated Red Blood Cells % 0.1 %/100WBC (0.0-0.8); Platelet Count 182 10^3/uL (150-450); Red Blood Count 2.83 10^6/uL (4.06-5.63); Red Cell Distribution Width 16.3 % (12-17); White Blood Count 10.5 10^3/uL (3.6-10.2)
[2024-04-30] MEDS: Iodixanol (CONTRAST) 320 MG/ML 100 ML SDV IV ONE (01:11)
[2024-04-30 01:12] LABS: Creatinine, Serum 8.16 mg/dL (0.67-1.17); eGFR CKD-EPI 7.5 (>60)
[2024-04-30 02:13] LABS: HDL Cholesterol 26.8 mg/dL
[2024-04-30 03:09] LABS: Albumin 2.9 g/dL (3.2-5.2); Calcium 7.4 mg/dL (8.6-10.3); Creatinine, Serum 8.26 mg/dL (0.67-1.17); Potassium 3.9 mmol/L (3.5-5.0); Total Bilirubin 0.6 mg/dL (0.2-1.0); Total Protein 5.9 g/dL (6.4-8.9); eGFR CKD-EPI 7.4 (>60)
[2024-04-30 03:11] LABS: Magnesium 1.6 mg/dL (1.9-2.7)
[2024-04-30] MEDS ORDERED: Dextrose 50% Syringe 50 ml 25 GM/50 ML SYRINGE IV PUSH PRN (03:13)
[2024-04-30 03:25] LABS: TSH Ultra Thyroid Stim Horm 11.9 mcIU/mL (0.34-5.60)
[2024-04-30] MEDS: Insulin GLARGINE 100 un/ml 10 ml VIAL SUBCUT SCH ×2 (03:45→21:49)
[2024-04-30 04:21] LABS: Ferritin 577.4 ng/mL (24-336)
[2024-04-30 04:57] LABS: High Sensitivity Troponin 1 Hr 63 pg/mL (<20)
[2024-04-30 05:07] LABS: Free T4 1.01 ng/dL (0.61-1.12)
[2024-04-30 06:13] LABS: High Sensitivity Troponin 3 Hr 58 pg/mL (<20)
[2024-04-30] MEDS: Magnesium Sulfate 2 gm BAG 2 GM/50 ML BAG IVPB ONE (06:18)
[2024-04-30 06:44] LABS: Hematocrit 24.3 % (38-53); Hemoglobin 8.6 g/dL (13.2-16.3); Mean Corpuscular Hemoglobin 31.2 pg (27-33); Mean Corpuscular Hgb Conc 35.6 g/dL (31-36); Mean Corpuscular Volume 87.5 fL (80-97); Mean Platelet Volume 7.9 fL (7.5-11.2); Platelet Count 170 10^3/uL (150-450); Red Blood Count 2.77 10^6/uL (4.06-5.63); Red Cell Distribution Width 16.3 % (12-17); White Blood Count 10.2 10^3/uL (3.6-10.2)
[2024-04-30] MEDS ORDERED: Heparin 5000 UNITS/ML 1 mL VIAL ONE (06:58)
[2024-04-30] MEDS: Magnesium Sulfate IV 1GM/100ML 1 GM/100 ML BAG IV ONE (07:27)
[2024-04-30 07:52] LABS: ABS Basophils 0.1 10^3/uL (0.0-0.1); ABS Eosinophils 0.5 10^3/uL (0.0-0.5); ABS Lymphocytes 1.2 10^3/uL (1.0-4.8); ABS Monocytes 1.6 10^3/uL (0.0-1.1); ABS Neutrophils 6.9 10^3/uL (1.5-7.6); Eosinophil % 4.9 %; Lymphocyte % 11.7 %
[2024-04-30] MEDS: Heparin 5000 UNITS/ML 1 mL VIAL IV ONE (08:18)
[2024-04-30] MEDS ORDERED: Sulfur Hexaflouride MICROSPHR 25 MG VIAL ONE (08:40)
[2024-04-30] MEDS ORDERED: Albumin Human 25% 25 GM/100 ML BTL IV PRN (09:04)
[2024-04-30] MEDS ORDERED: NS 0.9% 1000 ml BAG 100 ML IV PRN (09:04)
[2024-04-30] MEDS ORDERED: NS 0.9% 1000 ml BAG 200 ML IV PRN (09:04)
[2024-04-30 13:16] LABS: INR 1.31 (0.85-1.14)
[2024-04-30 13:22] LABS: Hepatitis B Surface Antigen Nonreactive (Nonreactive)
[2024-04-30 13:39] LABS: Hepatitis B Surface Ab Not Immune (Immune)
[2024-04-30 16:18] LABS: Total Protein 6.1 g/dL (6.4-8.9)
[2024-05-01 06:40] LABS: ABS Eosinophils 0.5 10^3/uL (0.0-0.5); ABS Monocytes 1.2 10^3/uL (0.0-1.1); ABS Neutrophils 4.7 10^3/uL (1.5-7.6); Eosinophil % 6.8 %; Hematocrit 22.9 % (38-53); Hemoglobin 8.4 g/dL (13.2-16.3); Lymphocyte % 13.6 %; Mean Corpuscular Hemoglobin 31.8 pg (27-33); Mean Corpuscular Hgb Conc 36.6 g/dL (31-36); Mean Corpuscular Volume 87.1 fL (80-97); Mean Platelet Volume 7.8 fL (7.5-11.2); Nucleated Red Blood Cells % 0.1 %/100WBC (0.0-0.8); Platelet Count 168 10^3/uL (150-450); Red Blood Count 2.63 10^6/uL (4.06-5.63); Red Cell Distribution Width 16.1 % (12-17); White Blood Count 7.5 10^3/uL (3.6-10.2)
[2024-05-01 08:11] LABS: Calcium 7.4 mg/dL (8.6-10.3); Creatinine, Serum 7.32 mg/dL (0.67-1.17); Magnesium 1.9 mg/dL (1.9-2.7); Phosphorus 4.2 mg/dL (2.5-5.0); Potassium 3.8 mmol/L (3.5-5.0); eGFR CKD-EPI 8.6 (>60)
[2024-05-01] MEDS: Heparin 1,000 UNIT/ML 10 ml (10,000 UNITS) CATHLAB/DIALYSIS DIALYSIS PRN (08:27)
[2024-05-01] MEDS: Heparin 5000 UNITS/ML 1 mL VIAL SUBCUT SCH (14:40)
[2024-05-01] MEDS ORDERED: Enoxaparin 40 MG/0.4 ML SYR SUBCUT SCH (16:00)
[2024-05-01] MEDS: Acetaminophen IV 1 GM/100ML 1,000 MG/100 ML BAG IV PRN (16:10)
[2024-05-01] MEDS: Iron Sucrose 200 MG in NS 0.9% 100 ml BAG 100 ML IVPB ONE (17:24)
[2024-05-01 18:01] LABS: Body Fluid Total Nucleated 53 /mcL
[2024-05-01 18:24] LABS: Body Fluid Source Pleural Fluid
[2024-05-01 18:25] LABS: Body Fluid Appearance Clear; Body Fluid Color Yellow
[2024-05-01 19:52] LABS: Body Fluid Mono 60 %; Body Fluid Other Cells 8; Body Fluid Total Cells Counted 200
[2024-05-01] MEDS ORDERED: Dextrose 50% Syringe 50 ml 25 GM/50 ML SYRINGE IV PUSH PRN (21:25)
[2024-05-01] MEDS: Insulin GLARGINE 100 un/ml 10 ml VIAL SUBCUT SCH (22:09)
[2024-05-02 06:01] LABS: ABS Eosinophils 0.6 10^3/uL (0.0-0.5); ABS Monocytes 1.2 10^3/uL (0.0-1.1); ABS Neutrophils 5.1 10^3/uL (1.5-7.6); Eosinophil % 7.2 %; Hematocrit 23.8 % (38-53); Hemoglobin 8.5 g/dL (13.2-16.3); Mean Corpuscular Hgb Conc 35.6 g/dL (31-36); Mean Corpuscular Volume 87.1 fL (80-97); Mean Platelet Volume 7.9 fL (7.5-11.2); Platelet Count 201 10^3/uL (150-450); Red Blood Count 2.74 10^6/uL (4.06-5.63); Red Cell Distribution Width 16.2 % (12-17); White Blood Count 7.9 10^3/uL (3.6-10.2)
[2024-05-02 06:43] LABS: Calcium 7.5 mg/dL (8.6-10.3); Creatinine, Serum 6.53 mg/dL (0.67-1.17); Magnesium 1.8 mg/dL (1.9-2.7); Phosphorus 4.2 mg/dL (2.5-5.0); Potassium 3.9 mmol/L (3.5-5.0); eGFR CKD-EPI 9.8 (>60)
[2024-05-02] MEDS: Magnesium Sulfate 2 gm BAG 2 GM/50 ML BAG IVPB ONE (08:32)
[2024-05-02] MEDS ORDERED: guaiFENesin/CODIENE 100mg/10mg 5 ML UDC PO PRN (08:41)
[2024-05-02] MEDS ORDERED: Aminophylline 25 MG/ML VIAL ONE (11:36)
[2024-05-02] MEDS ORDERED: Regadenoson 0.4 MG/5 ML SYRINGE ONE (11:36)
[2024-05-02 15:51] LABS: Ferritin 547.2 ng/mL (24-336)
[2024-05-02 20:08] VITALS: BP 112/65
[2024-05-03 15:10] LABS: Fluid Type, Albumin PLEURAL; Fluid Type, Protein, Total PLEURAL; Glucose, BF 200 mg/dL; Total Protein, BF 1.5 g/dL
[2024-05-04 15:48] LABS: Lactate Dehydrogenase, BF 67 U/L
== END 2024-05-02 18:22 | disposition home or self-care (01) | DRG 194 ==
LOC: ED 23:24 → SUATTDRO 04-30 00:29 → EDHOLD 04-30 00:29 → MEDTELE 04-30 08:25
PROVIDERS: ADMIT Internal Medicine; ATTEND Internal Medicine

== ENCOUNTER 2024-05-05 15:00 | Inpatient (IN) ==
[2024-05-05 15:24] LABS: ABS Basophils 0.1 10^3/uL (0.0-0.1); ABS Eosinophils 0.9 10^3/uL (0.0-0.5); ABS Lymphocytes 0.8 10^3/uL (1.0-4.8); ABS Monocytes 1.4 10^3/uL (0.0-1.1); ABS Neutrophils 9.9 10^3/uL (1.5-7.6); Eosinophil % 6.9 %; Hematocrit 26.8 % (38-53); Hemoglobin 9.1 g/dL (13.2-16.3); Mean Corpuscular Hemoglobin 29.7 pg (27-33); Mean Corpuscular Volume 87.4 fL (80-97); Mean Platelet Volume 7.7 fL (7.5-11.2); Platelet Count 257 10^3/uL (150-450); Red Blood Count 3.06 10^6/uL (4.06-5.63); Red Cell Distribution Width 16.2 % (12-17); White Blood Count 13.2 10^3/uL (3.6-10.2)
[2024-05-05 15:33] LABS: INR 1.11 (0.85-1.14)
[2024-05-05 16:23] LABS: Albumin 3.3 g/dL (3.2-5.2); Creatinine, Serum 8.06 mg/dL (0.67-1.17); Globulin 3.3 g/dL (2-4); Potassium 4.2 mmol/L (3.5-5.0); Total Bilirubin 0.4 mg/dL (0.2-1.0); Total Protein 6.6 g/dL (6.4-8.9); eGFR CKD-EPI 7.6 (>60)
[2024-05-05] MEDS: Aspirin EC 325 mg TAB.EC PO ONE (16:32)
[2024-05-05 16:58] LABS: High Sensitivity Troponin 1 Hr 11 pg/mL (<20)
[2024-05-05] MEDS ORDERED: Dextrose 50% Syringe 50 ml 25 GM/50 ML SYRINGE IV PUSH PRN (18:12)
[2024-05-05] MEDS: NS 0.9% 1000 ml BAG 1,000 ML IV ONE (19:08)
[2024-05-05 19:10] LABS: Body Fluid Appearance Clear; Body Fluid Color Yellow; Body Fluid Source Pleural Fluid
[2024-05-05 19:23] LABS: Body Fluid Total Nucleated 325 /mcL
[2024-05-05] MEDS: HYDROmorphone 0.5 MG/0.5 ML SYRINGE IV ONE (19:53)
[2024-05-05] MEDS: Ondansetron ODT 4 mg TAB 4 MG TAB PO PRN (20:05)
[2024-05-05 20:41] LABS: Body Fluid Mono 79 %; Body Fluid Total Cells Counted 200
[2024-05-05] MEDS: Furosemide 40 mg/4 ml IV VIAL IV SLOW PU ONE (22:47)
[2024-05-05] MEDS: Latanoprost 0.005% 2.5 ml BTL LEFT EYE SCH (22:49)
[2024-05-05] MEDS: Dorzolamide/Timolol OPTH (NF) 10 ML BOT LEFT EYE SCH (22:50)
[2024-05-05] MEDS: Norepinephrine 4 MG/250mL NS 4,000 MCG/250 ML BAG IV SCH (23:41)
[2024-05-06 06:08] LABS: Calcium 7.6 mg/dL (8.6-10.3); Creatinine, Serum 8.77 mg/dL (0.67-1.17); Potassium 4.4 mmol/L (3.5-5.0); eGFR CKD-EPI 6.9 (>60)
[2024-05-06 06:39] LABS: Hematocrit 25.7 % (38-53); Hemoglobin 8.5 g/dL (13.2-16.3); Mean Corpuscular Hemoglobin 29.7 pg (27-33); Mean Corpuscular Volume 90.1 fL (80-97); Mean Platelet Volume 8.1 fL (7.5-11.2); Platelet Count 226 10^3/uL (150-450); Red Blood Count 2.85 10^6/uL (4.06-5.63); White Blood Count 14.4 10^3/uL (3.6-10.2)
[2024-05-06 07:49] LABS: ABS Basophils 0.1 10^3/uL (0.0-0.1); ABS Eosinophils 0.7 10^3/uL (0.0-0.5); ABS Lymphocytes 1.1 10^3/uL (1.0-4.8); ABS Monocytes 1.7 10^3/uL (0.0-1.1); ABS Neutrophils 10.8 10^3/uL (1.5-7.6); ABS Nucleated RBC 0.01 10^3/ul; Eosinophil % 4.8 %; Lymphocyte % 7.6 %; Nucleated Red Blood Cells % 0.1 %/100WBC (0.0-0.8)
[2024-05-06] MEDS: HYDROmorphone 0.5 MG/0.5 ML SYRINGE IV SLOW PU PRN (08:19)
[2024-05-06 10:05] LABS: High Sensitivity Troponin 1 Hr 10 pg/mL (<20)
[2024-05-06] MEDS ORDERED: NS 0.9% 1000 ml BAG 200 ML IV PRN (10:40)
[2024-05-06] MEDS: Heparin 1,000 UNIT/ML 10 ml (10,000 UNITS) CATHLAB/DIALYSIS DIALYSIS PRN (15:38)
[2024-05-06] MEDS: Heparin *DIALYSIS* ONLY 1,000 UNITS/ML VIAL DIALYSIS SCH (18:48)
[2024-05-07 07:22] LABS: Hematocrit 23.7 % (38-53); Hemoglobin 8.3 g/dL (13.2-16.3); Mean Corpuscular Hemoglobin 31.2 pg (27-33); Mean Platelet Volume 8.2 fL (7.5-11.2); Platelet Count 223 10^3/uL (150-450); Red Blood Count 2.66 10^6/uL (4.06-5.63); Red Cell Distribution Width 16.5 % (12-17); White Blood Count 10.8 10^3/uL (3.6-10.2)
[2024-05-07 07:41] LABS: Calcium 7.4 mg/dL (8.6-10.3); Creatinine, Serum 9.83 mg/dL (0.67-1.17); Potassium 4.6 mmol/L (3.5-5.0)
[2024-05-07 08:07] LABS: ABS Basophils 0.1 10^3/uL (0.0-0.1); ABS Eosinophils 0.8 10^3/uL (0.0-0.5); ABS Lymphocytes 1.1 10^3/uL (1.0-4.8); ABS Monocytes 1.7 10^3/uL (0.0-1.1); ABS Nucleated RBC 0.01 10^3/ul; Eosinophil % 7.8 %; Lymphocyte % 10.4 %
[2024-05-07] MEDS: Albumin Human 25% 25 GM/100 ML BTL IV PRN (11:08)
[2024-05-07] MEDS: NS 0.9% 1000 ml BAG 100 ML IV PRN (14:18)
[2024-05-08 06:14] LABS: Hematocrit 22.7 % (38-53); Hemoglobin 7.7 g/dL (13.2-16.3); Mean Corpuscular Hemoglobin 29.8 pg (27-33); Mean Corpuscular Hgb Conc 33.8 g/dL (31-36); Mean Corpuscular Volume 88.1 fL (80-97); Mean Platelet Volume 7.8 fL (7.5-11.2); Platelet Count 255 10^3/uL (150-450); Red Blood Count 2.58 10^6/uL (4.06-5.63); White Blood Count 10.2 10^3/uL (3.6-10.2)
[2024-05-08 07:31] LABS: Calcium 7.4 mg/dL (8.6-10.3); Creatinine, Serum 5.99 mg/dL (0.67-1.17); Potassium 3.9 mmol/L (3.5-5.0); eGFR CKD-EPI 10.9 (>60)
[2024-05-08 07:49] LABS: ABS Eosinophils 0.6 10^3/uL (0.0-0.5); ABS Lymphocytes 0.8 10^3/uL (1.0-4.8); ABS Monocytes 1.9 10^3/uL (0.0-1.1); ABS Neutrophils 6.8 10^3/uL (1.5-7.6); ABS Nucleated RBC 0.01 10^3/ul; Eosinophil % 6.3 %; Nucleated Red Blood Cells % 0.1 %/100WBC (0.0-0.8)
[2024-05-08] MEDS: Heparin 1,000 UNIT/ML 10 ml (10,000 UNITS) CATHLAB/DIALYSIS DIALYSIS SCH (13:12)
[2024-05-08] MEDS: Insulin GLARGINE 100 un/ml 10 ml VIAL SUBCUT ONE (16:59)
[2024-05-09] MEDS: Ondansetron ODT 4 mg TAB 4 MG TAB PO PRN (05:13)
[2024-05-09 05:50] LABS: Hematocrit 25.3 % (38-53); Mean Corpuscular Hemoglobin 29.4 pg (27-33); Mean Corpuscular Hgb Conc 31.7 g/dL (31-36); Mean Corpuscular Volume 92.7 fL (80-97); Platelet Count 237 10^3/uL (150-450); Red Blood Count 2.72 10^6/uL (4.06-5.63); Red Cell Distribution Width 16.1 % (12-17); White Blood Count 9.8 10^3/uL (3.6-10.2)
[2024-05-09 05:53] LABS: ABS Eosinophils 0.4 10^3/uL (0.0-0.5); ABS Lymphocytes 0.7 10^3/uL (1.0-4.8); ABS Neutrophils 6.6 10^3/uL (1.5-7.6); ABS Nucleated RBC 0.01 10^3/ul; Eosinophil % 4.1 %; Lymphocyte % 7.4 %; Nucleated Red Blood Cells % 0.1 %/100WBC (0.0-0.8)
[2024-05-09 06:11] LABS: Calcium 7.7 mg/dL (8.6-10.3); Creatinine, Serum 6.59 mg/dL (0.67-1.17); eGFR CKD-EPI 9.7 (>60)
[2024-05-09] MEDS ORDERED: Heparin 2 UNITS/ML 1000 mls 2,000 ML IV ONE (07:33)
[2024-05-09] MEDS ORDERED: Heparin 1,000 UNIT/ML 10 ml (10,000 UNITS) CATHLAB/DIALYSIS ONE (07:33)
[2024-05-09] MEDS ORDERED: fentaNYL 100 mcg/2 ml 50 MCG/ML VIAL ONE ×3 (07:33→08:58)
[2024-05-09] MEDS ORDERED: Midazolam 5 mg/5 ml VIAL 1 mg/ml 5 ml VIAL (5 mg) ONE (07:33)
[2024-05-09] MEDS ORDERED: Iohexol 350 (CONTRAST) 200 ML MDV IV ONE (07:34)
[2024-05-09] MEDS ORDERED: Lidocaine 1% MPF 5 ML VIAL ONE (07:34)
[2024-05-09] MEDS ORDERED: nitroGLYCERIN DRIP 25,000 MCG/250 ML BTL ONE (07:34)
[2024-05-09] MEDS: Aspirin EC 81 mg TAB.EC (enteric coated) PO SCH (07:45)
[2024-05-09] MEDS ORDERED: Flumazenil 0.5 mg/5 ml 0.1 MG/ML 5 ml VIAL IV PRN (07:53)
[2024-05-09] MEDS ORDERED: Naloxone 0.4 mg VIAL 0.4 mg/ml 1 ml VIAL IV PUSH PRN (07:53)
[2024-05-09] MEDS ORDERED: niCARdipine 0.1MG/ML IVPREMIX 20 MG/200 ML BAG IV ONE (07:57)
[2024-05-09] MEDS ORDERED: Insulin GLARGINE 100 un/ml 10 ml VIAL SUBCUT SCH (09:00)
[2024-05-09 09:45] LABS: Fluid Type, Protein, Total PLEURAL FLUID; Glucose, BF 298 mg/dL; Total Protein, BF 2.2 g/dL
[2024-05-09] MEDS: fentaNYL 100 mcg/2 ml 50 MCG/ML VIAL IV SLOW PU ONE (12:03)
[2024-05-09] MEDS: Midazolam 10 mg/10 ml VIAL 1 mg/ml 10 ml VIAL (10 mg) IV SLOW PU ONE (12:03)
[2024-05-09] MEDS: Nitro 2% OINT (Nitroglycerin) 1 INCH/PAK TOPICAL ONE (12:54)
[2024-05-09] MEDS: Insulin GLARGINE 100 un/ml 10 ml VIAL SUBCUT SCH ×2 (13:07→13:09)
[2024-05-09] MEDS: NS 0.9% 250 ml 250 ML IV ONE (17:26)
[2024-05-10] MEDS: Insulin GLARGINE 100 un/ml 10 ml VIAL SUBCUT SCH ×2 (08:57→22:16)
[2024-05-10 10:07] LABS: ABS Eosinophils 0.5 10^3/uL (0.0-0.5); ABS Lymphocytes 0.6 10^3/uL (1.0-4.8); ABS Monocytes 1.4 10^3/uL (0.0-1.1); ABS Neutrophils 6.2 10^3/uL (1.5-7.6); Eosinophil % 5.9 %; Hematocrit 22.5 % (38-53); Hemoglobin 7.6 g/dL (13.2-16.3); Lymphocyte % 7.2 %; Mean Corpuscular Hemoglobin 29.4 pg (27-33); Mean Corpuscular Hgb Conc 33.8 g/dL (31-36); Mean Corpuscular Volume 86.9 fL (80-97); Mean Platelet Volume 7.6 fL (7.5-11.2); Platelet Count 267 10^3/uL (150-450); Red Blood Count 2.59 10^6/uL (4.06-5.63); Red Cell Distribution Width 16.4 % (12-17); White Blood Count 8.8 10^3/uL (3.6-10.2)
[2024-05-10 11:05] LABS: Calcium 7.6 mg/dL (8.6-10.3); Creatinine, Serum 7.39 mg/dL (0.67-1.17); Potassium 3.9 mmol/L (3.5-5.0); eGFR CKD-EPI 8.5 (>60)
[2024-05-11 14:49] LABS: Hematocrit 24.7 % (38-53); Hemoglobin 8.2 g/dL (13.2-16.3); Mean Corpuscular Hemoglobin 28.4 pg (27-33); Mean Corpuscular Hgb Conc 33.1 g/dL (31-36); Mean Corpuscular Volume 85.8 fL (80-97); Mean Platelet Volume 7.3 fL (7.5-11.2); Platelet Count 319 10^3/uL (150-450); Red Blood Count 2.88 10^6/uL (4.06-5.63); Red Cell Distribution Width 16.7 % (12-17); White Blood Count 14.4 10^3/uL (3.6-10.2)
[2024-05-11 14:54] LABS: ABS Basophils 0.2 10^3/uL (0.0-0.1); ABS Eosinophils 0.4 10^3/uL (0.0-0.5); ABS Lymphocytes 0.6 10^3/uL (1.0-4.8); ABS Monocytes 1.8 10^3/uL (0.0-1.1); ABS Neutrophils 11.4 10^3/uL (1.5-7.6); ABS Nucleated RBC 0.01 10^3/ul; Eosinophil % 2.8 %
[2024-05-11 15:05] LABS: Calcium 7.9 mg/dL (8.6-10.3); Creatinine, Serum 5.03 mg/dL (0.67-1.17); Magnesium 1.5 mg/dL (1.9-2.7); Potassium 3.9 mmol/L (3.5-5.0); eGFR CKD-EPI 13.4 (>60)
[2024-05-11] MEDS: Magnesium Sulfate 2 gm BAG 2 GM/50 ML BAG IVPB ONE (16:36)
[2024-05-11] MEDS: Magnesium Sulfate IV 1GM/100ML 1 GM/100 ML BAG IV ONE (17:49)
[2024-05-12 08:04] LABS: ABS Eosinophils 0.3 10^3/uL (0.0-0.5); ABS Lymphocytes 0.7 10^3/uL (1.0-4.8); ABS Monocytes 1.5 10^3/uL (0.0-1.1); ABS Neutrophils 6.3 10^3/uL (1.5-7.6); Eosinophil % 3.1 %; Hematocrit 22.3 % (38-53); Hemoglobin 7.7 g/dL (13.2-16.3); Lymphocyte % 7.8 %; Mean Corpuscular Hemoglobin 29.8 pg (27-33); Mean Corpuscular Hgb Conc 34.7 g/dL (31-36); Mean Corpuscular Volume 85.8 fL (80-97); Mean Platelet Volume 7.4 fL (7.5-11.2); Platelet Count 292 10^3/uL (150-450); Red Cell Distribution Width 16.3 % (12-17); White Blood Count 8.8 10^3/uL (3.6-10.2)
[2024-05-12 08:36] LABS: Calcium 7.8 mg/dL (8.6-10.3); Creatinine, Serum 5.9 mg/dL (0.67-1.17); Magnesium 2.3 mg/dL (1.9-2.7); Potassium 3.8 mmol/L (3.5-5.0); eGFR CKD-EPI 11.1 (>60)
[2024-05-12] MEDS: Potassium Chlor 20 meq TAB.ER PO ONE (14:51)
[2024-05-12] MEDS: Insulin GLARGINE 100 un/ml 10 ml VIAL SUBCUT SCH (22:30)
[2024-05-13] MEDS: HYDROmorphone 0.5 MG/0.5 ML SYRINGE IV SLOW PU PRN (10:16)
[2024-05-13] MEDS: Sulfamethox/Trimethoprim DS TAB 800/160 mg PO SCH (12:37)
[2024-05-13] MEDS: Heparin 5000 UNITS/ML 1 mL VIAL SUBCUT SCH (21:44)
[2024-05-14 05:51] LABS: ABS Basophils 0.1 10^3/uL (0.0-0.1); ABS Eosinophils 0.4 10^3/uL (0.0-0.5); ABS Monocytes 1.1 10^3/uL (0.0-1.1); ABS Neutrophils 4.8 10^3/uL (1.5-7.6); ABS Nucleated RBC 0.01 10^3/ul; Hematocrit 22.9 % (38-53); Hemoglobin 7.8 g/dL (13.2-16.3); Lymphocyte % 13.3 %; Mean Corpuscular Hemoglobin 28.8 pg (27-33); Mean Corpuscular Hgb Conc 34.2 g/dL (31-36); Mean Corpuscular Volume 84.4 fL (80-97); Mean Platelet Volume 7.3 fL (7.5-11.2); Nucleated Red Blood Cells % 0.1 %/100WBC (0.0-0.8); Platelet Count 318 10^3/uL (150-450); Red Blood Count 2.71 10^6/uL (4.06-5.63); Red Cell Distribution Width 16.8 % (12-17); White Blood Count 7.3 10^3/uL (3.6-10.2)
[2024-05-14 06:02] LABS: Calcium 7.6 mg/dL (8.6-10.3); Creatinine, Serum 5.64 mg/dL (0.67-1.17); Potassium 3.7 mmol/L (3.5-5.0); eGFR CKD-EPI 11.7 (>60)
[2024-05-14 15:36] VITALS: BP 125/65
== END 2024-05-14 18:37 | disposition short-term general hospital (02) | DRG 192 ==
LOC: EDHOLD 15:00 → ED 15:00 → MED 23:44 → SUATTDRO 05-07 10:45 → MEDTELE 05-09 11:48
PROVIDERS: ADMIT Internal Medicine Hematology & Oncology; ATTEND Internal Medicine